=== PATIENT | male | born 1945 | race African-American/Black ===

== ENCOUNTER 2018-02-01 13:30 | Emergency (ER) | payer MEDICARE, MEDICAID ==
[~2018-02-01] VITALS: Ht 177.8 cm; Wt 118.0 kg
[~2018-02-01 13:30] MED LIST: AMA4 PO; AMIT10TA6 PO; ATOR10TA69 PO; CLAR10 PO; COLC0.6T66 PO; DOCU-150 PO; FERR-63 PO; IPRA0.2S51 IH; LOV40 SQ; NEPVIT PO; OMEP20TA2 PO; PROT40 PO; SITA100T11 PO; STARLIX PO; TAMS-11 PO
[2018-02-01] MEDS ORDERED: SODIUM CHLORIDE 0.9% 500 ML IV ONE (14:38)
[2018-02-01] MEDS ORDERED: ONDANSETRON HCL 4MG/2ML VIAL IV STA (14:38)
[2018-02-01] MEDS ORDERED: MORPHINE SULFATE 4 MG/ML CPJ (NOT FOR IM USE) IV STA (14:38)
[2018-02-01 16:29] LABS: HEMATOCRIT. 32.9 % (42.0-52.0); HEMOGLOBIN. 10.4 g/dL (14.0-18.0); MEAN CORPUSCULAR HEMOGLOBIN 27.1 pg (28.0-32.0); MEAN CORPUSCULAR VOLUME 85.6 fL (80.0-94.0); MEAN PLATELET VOLUME 7.8 fl (7.4-10.4); PLATELET 116 x1000/uL (130-400); RED BLOOD CELL COUNT 3.85 mill/uL (4.7-6.1); RED CELL DISTRIBUTION WIDTH 17.8 % (11.6-14.6)
[2018-02-01 16:37] LABS: CHLORIDE 94 mEq/L (98-107)
[2018-02-01 16:38] LABS: INR 1.1; PARTIAL THROMBOPLASTIN TIME 21.7 sec (23.4-31.0)
[2018-02-01 16:49] LABS: PLATELET ESTIMATE DECREASED
[2018-02-01] MEDS ORDERED: MORPHINE SULFATE 4 MG/ML CPJ (NOT FOR IM USE) IV ONE (18:30)
[2018-02-01 21:16] VITALS: BP 115/65
== END 2018-02-01 21:23 | disposition short-term general hospital (02) ==
LOC: ER 14:10
DX: L89.151 Pressure ulcer of sacral region, stage 1 (principal); R63.0 Anorexia; I12.0 Hypertensive chronic kidney disease with stage 5 chronic kidney disease or end stage renal disease; N18.6 End stage renal disease; J44.9 Chronic obstructive pulmonary disease, unspecified; Z99.2 Dependence on renal dialysis; Z79.84 Long term (current) use of oral hypoglycemic drugs; R79.1 Abnormal coagulation profile
CPT/HCPCS: 36415; 71045; 80053; 85025; 85610; 85730; 86850; 86900; 86901; 93005; 96374; 96375; 99285; J2270; J2405; J7030; J7040; Z7610

== ENCOUNTER 2018-02-02 10:54 | Inpatient (IN) | payer MEDICARE, MEDICAID ==
[~2018-02-02] VITALS: Ht 172.7 cm; Wt 90.3 kg
[2018-02-02] VITALS (59 sets, daily range): BP systolic 35–162; BP diastolic 23–133
[2018-02-02] MEDS ORDERED: VANCOMYCIN 1 G PREMIX 200 ML IV ONE (11:30)
[2018-02-02] MEDS ORDERED: SODIUM CHLORIDE 0.9% 1000ML BAG (SEPSIS BOLUS) IV ONE (11:30)
[2018-02-02] MEDS ORDERED: PIPERACILLIN/TAZ 3.375G PREMIX 50 ML IV ONE (11:30)
[2018-02-02 11:55] LABS: HEMATOCRIT. 32.4 % (42.0-52.0); HEMOGLOBIN. 10.3 g/dL (14.0-18.0); MEAN CORPUSCULAR HEMOGLOBIN 27.9 pg (28.0-32.0); MEAN CORPUSCULAR VOLUME 87.5 fL (80.0-94.0); MEAN PLATELET VOLUME 7.5 fl (7.4-10.4); PLATELET 116 x1000/uL (130-400); RED CELL DISTRIBUTION WIDTH 17.6 % (11.6-14.6)
[2018-02-02 12:02] LABS: CHLORIDE 97 mEq/L (98-107)
[2018-02-02 12:03] LABS: INR 1.1; PROTHROMBIN TIME 11.9 sec (9.4-11.6)
[2018-02-02 12:04] LABS: BG BASE EXCESS -6.1 mmol/L (-2.0-2.0); BG CARBOXYHEMOGLOBIN 1.1 % (0.5-1.5); BG DEOXYHEMOGLOBIN 0.4 % (0.0-5.0); BG HCO3 ACT 22.3 mmol/L (22.0-26.0); BG METHEMOGLOBIN 0.3 % (0.0-1.5); BG OXYGEN SATURATION 99.6 % (92.0-98.5); BG OXYHEMOGLOBIN 98.2 % (94.0-97.0); BG PCO2 58.3 mmHg (35.0-45.0); BG PH 7.201 (7.350-7.450); BG PO2 315.2 mmHg (75.0-100.0); BG SAMPLE SITE RIGHT RADIAL; BG TOTAL HEMOGLOBIN 11.2 g/dL (12.0-18.0); BG VENT MODE MASK - NRB
[2018-02-02 12:31] LABS: PLATELET ESTIMATE DECREASED
[2018-02-02] MEDS ORDERED: NOREPINEPHRINE 4 MG in DEXT 5% WATER 246 ML IV ONE ×2 (13:15→13:30)
[2018-02-02] MEDS ORDERED: ONDANSETRON HCL 4MG/2ML VIAL IV PRN (13:30)
[2018-02-02] MEDS ORDERED: ONDANSETRON HCL 4MG/2ML VIAL IV ONE (13:30)
[2018-02-02] MEDS ORDERED: MORPHINE SULFATE 4 MG/ML CPJ (NOT FOR IM USE) IV ONE (13:30)
[2018-02-02 13:50] LABS: BG BASE EXCESS -7.2 mmol/L (-2.0-2.0); BG DEOXYHEMOGLOBIN 6.7 % (0.0-5.0); BG HCO3 ACT 20.7 mmol/L (22.0-26.0); BG METHEMOGLOBIN 0.1 % (0.0-1.5); BG OXYGEN SATURATION 93.2 % (92.0-98.5); BG OXYHEMOGLOBIN 92.2 % (94.0-97.0); BG PCO2 52.5 mmHg (35.0-45.0); BG PH 7.213 (7.350-7.450); BG PO2 79.6 mmHg (75.0-100.0); BG SAMPLE SITE RIGHT BRACHIAL; BG TOTAL HEMOGLOBIN 10.9 g/dL (12.0-18.0); BG VENT MODE NASAL CANNULA
[2018-02-02] MEDS ORDERED: METRONIDAZOLE 500 MG PREMIX 100 ML IV ONE (14:30)
[2018-02-02] MEDS: SODIUM CHLORIDE 0.9% 1,000 ML IV SCH (16:16)
[2018-02-02] MEDS ORDERED: NOREPINEPHRINE 16 MG in DEXT 5% WATER 234 ML IV PRN (17:00)
[2018-02-02] MEDS ORDERED: PHENYLEPHRINE 40 MG in DEXT 5% WATER 246 ML IV PRN (17:15)
[2018-02-02] MEDS: MIDODRINE HCL 5MG TABLET PO SCH (17:30)
[2018-02-02] MEDS ORDERED: SODIUM BICARBONATE 8.4% 1 MEQ/ML 50ML SYR IV NR ×2 (17:59→21:30)
[2018-02-02] MEDS ORDERED: LEVOFLOXACIN 500MG PREMIX 100 ML IV SCH (18:00)
[2018-02-02] MEDS ORDERED: ENOXAPARIN 40MG/0.4ML SYR SUBCUT SCH (18:00)
[2018-02-02] MEDS ORDERED: VANCOMYCIN 1 G PREMIX 200 ML IV SCH (18:00)
[2018-02-02] MEDS ORDERED: SODIUM CHLORIDE 0.9% 250 ML IV NR (18:30)
[2018-02-02 18:35] LABS: CREATINE KINASE MB FRACTION 2.9 ng/mL (0.5-3.6)
[2018-02-02] MEDS ORDERED: DOPAMINE 400MG PREMIX 250 ML IV ONE (18:39)
[2018-02-02] MEDS: FERROUS SULFATE 325MG TABLET PO SCH (18:59)
[2018-02-02] MEDS ORDERED: DOPAMINE 400MG PREMIX 250 ML IV PRN (19:00)
[2018-02-02] MEDS ORDERED: PROPOFOL 10MG/ML 100ML 100 ML IV PRN (19:00)
[2018-02-02] MEDS ORDERED: NOREPINEPHRINE 32 MG in DEXT 5% WATER 468 ML IV PRN (19:00)
[2018-02-02] MEDS ORDERED: PHENYLEPHRINE 80 MG in DEXT 5% WATER 492 ML IV PRN ×2 (19:00→22:00)
[2018-02-02] MEDS ORDERED: ALBUMIN HUMAN 25GM/100ML (25%) IV NR (19:30)
[2018-02-02 21:01] LABS: BG BASE EXCESS -9.9 mmol/L (-2.0-2.0); BG DEOXYHEMOGLOBIN 0.8 % (0.0-5.0); BG FRACTION INSPIRED OXYGEN 100; BG HCO3 ACT 19.6 mmol/L (22.0-26.0); BG METHEMOGLOBIN 0.3 % (0.0-1.5); BG OXYGEN SATURATION 99.2 % (92.0-98.5); BG OXYHEMOGLOBIN 97.9 % (94.0-97.0); BG PCO2 60.4 mmHg (35.0-45.0); BG PH 7.128 (7.350-7.450); BG PO2 197.3 mmHg (75.0-100.0); BG SAMPLE SITE RIGHT RADIAL; BG TIDAL VOLUME(mL) 600 mL; BG TOTAL HEMOGLOBIN 11.4 g/dL (12.0-18.0); BG VENT MODE VENT - A/C; BG VENT RATE 12 set
[2018-02-02] MEDS ORDERED: AMIKACIN SULFATE 650 MG in SODIUM CHLORIDE 0.9% 100 ML IV NR (21:30)
[2018-02-02] MEDS ORDERED: DEXTROSE 50% WATER 50ML SYRINGE IV PRN (21:45)
[2018-02-02] MEDS: LACTULOSE 20G/30ML UDC PO SCH (22:00)
[2018-02-02] MEDS: BLOOD SUGAR DIAGNOSTIC STRIP TEST SCH (22:20)
[2018-02-02] MEDS: INSULIN LISPRO 100 UNITS/ML SUBCUT SCH (22:28)
[2018-02-03] VITALS (108 sets, daily range): BP systolic 53–142; BP diastolic 29–106
[2018-02-03] MEDS: CEFEPIME 2,000 MG in DEXT 5% WATER 100 ML IV SCH ×2 (00:58→20:45)
[2018-02-03] MEDS: SODIUM CHLORIDE 0.9% 1,000 ML IV SCH (02:38)
[2018-02-03 03:17] LABS: BG CARBOXYHEMOGLOBIN 0.7 % (0.5-1.5); BG DEOXYHEMOGLOBIN 2.7 % (0.0-5.0); BG FRACTION INSPIRED OXYGEN 80; BG HCO3 ACT 26.8 mmol/L (22.0-26.0); BG METHEMOGLOBIN 0.1 % (0.0-1.5); BG OXYGEN SATURATION 97.3 % (92.0-98.5); BG OXYHEMOGLOBIN 96.5 % (94.0-97.0); BG PCO2 48.1 mmHg (35.0-45.0); BG PH 7.364 (7.350-7.450); BG PO2 102.4 mmHg (75.0-100.0); BG SAMPLE SITE RIGHT BRACHIAL; BG TIDAL VOLUME(mL) 600 mL; BG TOTAL HEMOGLOBIN 11.1 g/dL (12.0-18.0); BG VENT MODE VENT - A/C; BG VENT RATE 14 set
[2018-02-03 03:18] LABS: CREATINE KINASE MB FRACTION 3.2 ng/mL (0.5-3.6)
[2018-02-03] MEDS: IPRATROPIUM/ALBUTEROL 0.5-3(2.5)MG/3ML NEB HHN SCH ×5 (03:29→21:47)
[2018-02-03] MEDS: ACETAMINOPHEN 325MG TABLET PO PRN ×3 (04:47→14:55)
[2018-02-03 05:18] LABS: HEMATOCRIT. 30.3 % (42.0-52.0); HEMOGLOBIN. 9.7 g/dL (14.0-18.0); MEAN CORPUSCULAR HEMOGLOBIN 27.2 pg (28.0-32.0); MEAN CORPUSCULAR VOLUME 85.2 fL (80.0-94.0); MEAN PLATELET VOLUME 8.3 fl (7.4-10.4); PLATELET 111 x1000/uL (130-400); RED BLOOD CELL COUNT 3.55 mill/uL (4.7-6.1); RED CELL DISTRIBUTION WIDTH 17.8 % (11.6-14.6)
[2018-02-03 05:32] LABS: CHLORIDE 107 mEq/L (98-107)
[2018-02-03] MEDS: LACTULOSE 20G/30ML UDC PO SCH ×3 (06:00→23:28)
[2018-02-03] MEDS: BLOOD SUGAR DIAGNOSTIC STRIP TEST SCH ×4 (06:01→23:29)
[2018-02-03] MEDS: INSULIN LISPRO 100 UNITS/ML SUBCUT SCH ×4 (06:02→23:46)
[2018-02-03] MEDS ORDERED: IPRATROPIUM/ALBUTEROL 0.5-3(2.5)MG/3ML NEB HHN PRN (08:45)
[2018-02-03 08:58] LABS: PLATELET ESTIMATE DECREASED
[2018-02-03 08:59] LABS: BG BASE EXCESS 1.3 mmol/L (-2.0-2.0); BG CARBOXYHEMOGLOBIN 0.7 % (0.5-1.5); BG FRACTION INSPIRED OXYGEN 80; BG HCO3 ACT 26.7 mmol/L (22.0-26.0); BG METHEMOGLOBIN 0.2 % (0.0-1.5); BG OXYHEMOGLOBIN 98.1 % (94.0-97.0); BG PCO2 45.5 mmHg (35.0-45.0); BG PH 7.386 (7.350-7.450); BG PO2 164.6 mmHg (75.0-100.0); BG SAMPLE SITE RIGHT RADIAL; BG TIDAL VOLUME(mL) 600 mL; BG TOTAL HEMOGLOBIN 10.3 g/dL (12.0-18.0); BG VENT MODE VENT - A/C; BG VENT RATE 14 set
[2018-02-03] MEDS ORDERED: LACTULOSE 300 ML in WATER FOR INJECTION,STERILE 700 ML PR SCH (09:00)
[2018-02-03] MEDS: MIDODRINE HCL 5MG TABLET PO SCH ×3 (09:48→17:08)
[2018-02-03] MEDS: FERROUS SULFATE 325MG TABLET PO SCH ×3 (09:48→17:07)
[2018-02-03] MEDS: FOLIC ACID/VITAMIN B COMP W-C TABLET PO SCH (09:49)
[2018-02-03] MEDS: DEXT 5%/0.45% NACL 1000ML 1,000 ML IV SCH ×2 (09:51→21:33)
[2018-02-03] MEDS ORDERED: PANTOPRAZOLE SODIUM 40 MG/VIAL IV SCH (10:00)
[2018-02-03] MEDS: LACTOBACILLUS GG CAPSULE PO SCH (10:04)
[2018-02-03] MEDS: PANTOPRAZOLE SODIUM 40 MG/VIAL IV SCH (10:04)
[2018-02-03] MEDS: PROPOFOL 10MG/ML 100ML 100 ML IV PRN ×4 (11:16→21:58)
[2018-02-03 11:54] LABS: KETONES URINE TRACE (NEGATIVE); LEUKOCYTE ESTERASE URINE 3+ (NEGATIVE); NITRITE URINE NEGATIVE (NEGATIVE); OCCULT BLOOD URINE 3+ (NEGATIVE); PROTEIN URINE 3+ (NEGATIVE); UROBILINOGEN URINE 0.2 E.U./dL (0.2-1.0)
[2018-02-03] MEDS ORDERED: VANCOMYCIN HCL 1000 MG/20 ML ORAL PO SCH (12:00)
[2018-02-03] MEDS ORDERED: VANCOMYCIN HCL 1 GM/VIAL PO SCH (12:00)
[2018-02-03 12:04] LABS: CLARITY URINE CLOUDY (CLEAR); COLOR URINE YELLOW (YELLOW)
[2018-02-03] MEDS ORDERED: VANCOMYCIN 1 G PREMIX 200 ML IV SCH (13:00)
[2018-02-03] MEDS: PHENYLEPHRINE 80 MG in SODIUM CHLORIDE 0.9% 492 ML IV PRN ×2 (13:56→21:32)
[2018-02-03] MEDS ORDERED: LACTULOSE 20G/30ML UDC PO SCH (14:00)
[2018-02-03] MEDS: NOREPINEPHRINE 16 MG in DEXT 5% WATER 234 ML IV PRN (14:14)
[2018-02-03] MEDS: METRONIDAZOLE 500 MG PREMIX 100 ML IV SCH ×2 (14:33→21:57)
[2018-02-03] MEDS ORDERED: ENOXAPARIN 40MG/0.4ML SYR SUBCUT SCH (18:00)
[2018-02-03] MEDS: VANCOMYCIN HCL 1000 MG/20 ML ORAL PO SCH ×2 (19:10→23:29)
[2018-02-04] VITALS (109 sets, daily range): BP systolic 49–156; BP diastolic 30–95
[2018-02-04] MEDS: IPRATROPIUM/ALBUTEROL 0.5-3(2.5)MG/3ML NEB HHN SCH ×7 (00:01→23:55)
[2018-02-04] MEDS: PROPOFOL 10MG/ML 100ML 100 ML IV PRN ×5 (02:23→21:48)
[2018-02-04] MEDS: NOREPINEPHRINE 16 MG in DEXT 5% WATER 234 ML IV PRN ×3 (02:24→21:49)
[2018-02-04] MEDS: METRONIDAZOLE 500 MG PREMIX 100 ML IV SCH ×3 (05:29→21:52)
[2018-02-04] MEDS: LACTULOSE 20G/30ML UDC PO SCH ×4 (05:29→21:52)
[2018-02-04] MEDS: INSULIN LISPRO 100 UNITS/ML SUBCUT SCH ×3 (05:31→17:30)
[2018-02-04] MEDS: BLOOD SUGAR DIAGNOSTIC STRIP TEST SCH ×3 (05:31→17:21)
[2018-02-04] MEDS: VANCOMYCIN HCL 1000 MG/20 ML ORAL PO SCH ×3 (05:33→17:28)
[2018-02-04] MEDS: PHENYLEPHRINE 80 MG in SODIUM CHLORIDE 0.9% 492 ML IV PRN ×3 (06:31→21:49)
[2018-02-04 06:32] LABS: HEMATOCRIT. 35.7 % (42.0-52.0); HEMOGLOBIN. 11.1 g/dL (14.0-18.0); MEAN CORPUSCULAR HEMOGLOBIN 26.6 pg (28.0-32.0); MEAN CORPUSCULAR VOLUME 85.6 fL (80.0-94.0); MEAN PLATELET VOLUME 8.6 fl (7.4-10.4); PLATELET 97 x1000/uL (130-400); RED BLOOD CELL COUNT 4.17 mill/uL (4.7-6.1); RED CELL DISTRIBUTION WIDTH 18.1 % (11.6-14.6)
[2018-02-04] MEDS: LACTOBACILLUS GG CAPSULE PO SCH (08:18)
[2018-02-04] MEDS: PANTOPRAZOLE SODIUM 40 MG/VIAL IV SCH (08:18)
[2018-02-04] MEDS: FERROUS SULFATE 325MG TABLET PO SCH ×3 (08:19→17:28)
[2018-02-04] MEDS: ACETAMINOPHEN 325MG TABLET PO PRN (08:19)
[2018-02-04] MEDS: MIDODRINE HCL 5MG TABLET PO SCH ×3 (08:19→17:27)
[2018-02-04] MEDS: FOLIC ACID/VITAMIN B COMP W-C TABLET PO SCH (08:19)
[2018-02-04 09:24] LABS: PLATELET ESTIMATE DECREASED
[2018-02-04 09:56] LABS: BG BASE EXCESS -4.2 mmol/L (-2.0-2.0); BG CARBOXYHEMOGLOBIN 0.9 % (0.5-1.5); BG DEOXYHEMOGLOBIN 8.6 % (0.0-5.0); BG FRACTION INSPIRED OXYGEN 40; BG HCO3 ACT 20.7 mmol/L (22.0-26.0); BG METHEMOGLOBIN 0.1 % (0.0-1.5); BG OXYGEN SATURATION 91.3 % (92.0-98.5); BG OXYHEMOGLOBIN 90.4 % (94.0-97.0); BG PCO2 37.5 mmHg (35.0-45.0); BG PO2 68.8 mmHg (75.0-100.0); BG SAMPLE SITE RIGHT BRACHIAL; BG TIDAL VOLUME(mL) 600 mL; BG TOTAL HEMOGLOBIN 11.5 g/dL (12.0-18.0); BG VENT MODE VENT - A/C; BG VENT RATE 14 set
[2018-02-04] MEDS ORDERED: LEVOFLOXACIN 250MG PREMIX 50 ML IV SCH (18:00)
[2018-02-04] MEDS ORDERED: ENOXAPARIN 30MG/0.3ML SYR SUBCUT SCH (18:00)
[2018-02-04] MEDS: DEXT 5%/0.45% NACL 1000ML 1,000 ML IV SCH ×2 (18:18→21:49)
[2018-02-04] MEDS ORDERED: VANCOMYCIN 1 G PREMIX 200 ML IV SCH (21:00)
[2018-02-04] MEDS: CEFEPIME 2,000 MG in DEXT 5% WATER 100 ML IV SCH (21:52)
[2018-02-05] VITALS (97 sets, daily range): BP systolic 69–154; BP diastolic 30–98
[2018-02-05] MEDS: VANCOMYCIN HCL 1000 MG/20 ML ORAL PO SCH ×4 (00:27→17:37)
[2018-02-05] MEDS: INSULIN LISPRO 100 UNITS/ML SUBCUT SCH ×4 (00:28→17:36)
[2018-02-05] MEDS: BLOOD SUGAR DIAGNOSTIC STRIP TEST SCH ×4 (00:48→17:18)
[2018-02-05] MEDS: PROPOFOL 10MG/ML 100ML 100 ML IV PRN ×2 (01:45→05:43)
[2018-02-05] MEDS: IPRATROPIUM/ALBUTEROL 0.5-3(2.5)MG/3ML NEB HHN SCH ×4 (03:52→20:58)
[2018-02-05 05:22] LABS: HEMATOCRIT. 35.8 % (42.0-52.0); HEMOGLOBIN. 11.3 g/dL (14.0-18.0); MEAN CORPUSCULAR HEMOGLOBIN 26.7 pg (28.0-32.0); MEAN CORPUSCULAR VOLUME 84.2 fL (80.0-94.0); MEAN PLATELET VOLUME 8.7 fl (7.4-10.4); PLATELET 90 x1000/uL (130-400); RED BLOOD CELL COUNT 4.25 mill/uL (4.7-6.1); RED CELL DISTRIBUTION WIDTH 18.4 % (11.6-14.6)
[2018-02-05] MEDS: LACTULOSE 20G/30ML UDC PO SCH (05:34)
[2018-02-05] MEDS: PHENYLEPHRINE 80 MG in SODIUM CHLORIDE 0.9% 492 ML IV PRN ×3 (05:35→21:52)
[2018-02-05] MEDS: METRONIDAZOLE 500 MG PREMIX 100 ML IV SCH ×3 (05:35→21:46)
[2018-02-05] MEDS: NOREPINEPHRINE 16 MG in DEXT 5% WATER 234 ML IV PRN ×2 (05:36→17:42)
[2018-02-05 05:42] LABS: CHLORIDE 103 mEq/L (98-107)
[2018-02-05 07:50] LABS: PLATELET ESTIMATE SLIGHTLY DECREASED
[2018-02-05 07:54] LABS: BG BASE EXCESS -4.7 mmol/L (-2.0-2.0); BG DEOXYHEMOGLOBIN 7.7 % (0.0-5.0); BG HCO3 ACT 20.9 mmol/L (22.0-26.0); BG METHEMOGLOBIN 0.1 % (0.0-1.5); BG OXYGEN SATURATION 92.2 % (92.0-98.5); BG OXYHEMOGLOBIN 91.2 % (94.0-97.0); BG PH 7.326 (7.350-7.450); BG PO2 72.8 mmHg (75.0-100.0); BG SAMPLE SITE RIGHT RADIAL; BG TIDAL VOLUME(mL) 600 mL; BG TOTAL HEMOGLOBIN 12.2 g/dL (12.0-18.0); BG VENT MODE VENT - A/C; BG VENT RATE 14 set
[2018-02-05] MEDS ORDERED: PROPOFOL 10MG/ML 100ML 100 ML IV PRN (08:15)
[2018-02-05] MEDS: FOLIC ACID/VITAMIN B COMP W-C TABLET PO SCH (10:07)
[2018-02-05] MEDS: LACTOBACILLUS GG CAPSULE PO SCH (10:07)
[2018-02-05] MEDS: MIDODRINE HCL 5MG TABLET PO SCH (10:07)
[2018-02-05] MEDS: ACETAMINOPHEN 325MG TABLET PO PRN (10:07)
[2018-02-05] MEDS: FERROUS SULFATE 325MG TABLET PO SCH (10:07)
[2018-02-05] MEDS: PANTOPRAZOLE SODIUM 40 MG/VIAL IV SCH (10:08)
[2018-02-05 11:05] LABS: BG BASE EXCESS -5.2 mmol/L (-2.0-2.0); BG CARBOXYHEMOGLOBIN 0.9 % (0.5-1.5); BG DEOXYHEMOGLOBIN 3.9 % (0.0-5.0); BG FRACTION INSPIRED OXYGEN 65; BG HCO3 ACT 19.5 mmol/L (22.0-26.0); BG OXYGEN SATURATION 96.1 % (92.0-98.5); BG OXYHEMOGLOBIN 95.2 % (94.0-97.0); BG PCO2 34.9 mmHg (35.0-45.0); BG PH 7.364 (7.350-7.450); BG PO2 89.9 mmHg (75.0-100.0); BG SAMPLE SITE RIGHT RADIAL; BG TIDAL VOLUME(mL) 600 mL; BG TOTAL HEMOGLOBIN 12.2 g/dL (12.0-18.0); BG VENT MODE VENT - A/C; BG VENT RATE 18 set
[2018-02-05] MEDS ORDERED: FUROSEMIDE 40MG/4ML VIAL IVP NR (11:30)
[2018-02-05] MEDS ORDERED: MAGNESIUM 2 G PREMIX 50 ML IV SCH (14:00)
[2018-02-05] MEDS: DEXT 5%/0.45% NACL 1000ML 1,000 ML IV SCH (15:40)
[2018-02-05] MEDS: LACTULOSE 300 ML in WATER FOR INJECTION,STERILE 700 ML PR SCH (17:37)
[2018-02-05] MEDS ORDERED: ENOXAPARIN 30MG/0.3ML SYR SUBCUT SCH (18:00)
[2018-02-05] MEDS: CEFEPIME 2,000 MG in DEXT 5% WATER 100 ML IV SCH (21:47)
[2018-02-06] VITALS (92 sets, daily range): BP systolic 60–129; BP diastolic 16–101
[2018-02-06] MEDS: INSULIN LISPRO 100 UNITS/ML SUBCUT SCH ×5 (00:04→23:17)
[2018-02-06] MEDS: VANCOMYCIN HCL 1000 MG/20 ML ORAL PO SCH ×5 (00:04→23:09)
[2018-02-06] MEDS: BLOOD SUGAR DIAGNOSTIC STRIP TEST SCH ×5 (00:04→23:14)
[2018-02-06] MEDS: IPRATROPIUM/ALBUTEROL 0.5-3(2.5)MG/3ML NEB HHN SCH ×7 (00:33→23:46)
[2018-02-06] MEDS: DEXT 5%/0.45% NACL 1000ML 1,000 ML IV SCH ×2 (03:10→17:47)
[2018-02-06 05:38] LABS: HEMATOCRIT. 34.9 % (42.0-52.0); HEMOGLOBIN. 10.9 g/dL (14.0-18.0); MEAN CORPUSCULAR HEMOGLOBIN 26.5 pg (28.0-32.0); MEAN CORPUSCULAR VOLUME 84.9 fL (80.0-94.0); MEAN PLATELET VOLUME 8.7 fl (7.4-10.4); PLATELET 77 x1000/uL (130-400); RED BLOOD CELL COUNT 4.11 mill/uL (4.7-6.1); RED CELL DISTRIBUTION WIDTH 17.8 % (11.6-14.6)
[2018-02-06 05:49] LABS: CHLORIDE 101 mEq/L (98-107)
[2018-02-06] MEDS: METRONIDAZOLE 500 MG PREMIX 100 ML IV SCH ×3 (06:14→22:24)
[2018-02-06] MEDS: LACTULOSE 300 ML in WATER FOR INJECTION,STERILE 700 ML PR SCH ×2 (06:15→17:27)
[2018-02-06] MEDS: PHENYLEPHRINE 80 MG in SODIUM CHLORIDE 0.9% 492 ML IV PRN ×3 (06:16→20:36)
[2018-02-06] MEDS: NOREPINEPHRINE 16 MG in DEXT 5% WATER 234 ML IV PRN ×3 (06:16→23:10)
[2018-02-06 09:14] LABS: BG BASE EXCESS -6.1 mmol/L (-2.0-2.0); BG FRACTION INSPIRED OXYGEN 65; BG HCO3 ACT 18.3 mmol/L (22.0-26.0); BG METHEMOGLOBIN 0.1 % (0.0-1.5); BG OXYHEMOGLOBIN 95.9 % (94.0-97.0); BG PCO2 32.7 mmHg (35.0-45.0); BG PH 7.365 (7.350-7.450); BG PO2 95.3 mmHg (75.0-100.0); BG SAMPLE SITE RIGHT RADIAL; BG TIDAL VOLUME(mL) 600 mL; BG TOTAL HEMOGLOBIN 12.2 g/dL (12.0-18.0); BG VENT MODE VENT - A/C; BG VENT RATE 18 set
[2018-02-06] MEDS: LACTOBACILLUS GG CAPSULE PO SCH (09:39)
[2018-02-06] MEDS: PANTOPRAZOLE SODIUM 40 MG/VIAL IV SCH (09:39)
[2018-02-06 10:02] LABS: NUCLEATED RED BLOOD CELLS 1 /100 WBC; PLATELET ESTIMATE DECREASED
[2018-02-06] MEDS: CEFTRIAXONE 2 G in DEXTROSE 5% WATER 50 ML IV SCH (14:43)
[2018-02-07] VITALS (105 sets, daily range): BP systolic 77–137; BP diastolic 45–78
[2018-02-07] MEDS: DEXT 5%/0.45% NACL 1000ML 1,000 ML IV SCH ×2 (04:01→19:45)
[2018-02-07] MEDS: PHENYLEPHRINE 80 MG in SODIUM CHLORIDE 0.9% 492 ML IV PRN ×3 (04:02→19:47)
[2018-02-07] MEDS: IPRATROPIUM/ALBUTEROL 0.5-3(2.5)MG/3ML NEB HHN SCH ×5 (04:11→21:13)
[2018-02-07] MEDS: VANCOMYCIN HCL 1000 MG/20 ML ORAL PO SCH ×4 (05:45→23:55)
[2018-02-07] MEDS: METRONIDAZOLE 500 MG PREMIX 100 ML IV SCH ×3 (05:45→22:00)
[2018-02-07] MEDS: LACTULOSE 300 ML in WATER FOR INJECTION,STERILE 700 ML PR SCH ×2 (05:45→18:00)
[2018-02-07] MEDS: BLOOD SUGAR DIAGNOSTIC STRIP TEST SCH ×3 (05:52→18:40)
[2018-02-07] MEDS: INSULIN LISPRO 100 UNITS/ML SUBCUT SCH ×3 (05:57→18:41)
[2018-02-07 06:29] LABS: HEMATOCRIT. 32.1 % (42.0-52.0); HEMOGLOBIN. 10.3 g/dL (14.0-18.0); MEAN CORPUSCULAR VOLUME 84.7 fL (80.0-94.0); MEAN PLATELET VOLUME 8.4 fl (7.4-10.4); PLATELET 82 x1000/uL (130-400); RED BLOOD CELL COUNT 3.79 mill/uL (4.7-6.1); RED CELL DISTRIBUTION WIDTH 17.6 % (11.6-14.6)
[2018-02-07 07:39] LABS: BG BASE EXCESS -7.4 mmol/L (-2.0-2.0); BG CARBOXYHEMOGLOBIN 0.6 % (0.5-1.5); BG DEOXYHEMOGLOBIN 6.6 % (0.0-5.0); BG FRACTION INSPIRED OXYGEN 45; BG HCO3 ACT 17.6 mmol/L (22.0-26.0); BG METHEMOGLOBIN 0.3 % (0.0-1.5); BG OXYGEN SATURATION 93.3 % (92.0-98.5); BG OXYHEMOGLOBIN 92.5 % (94.0-97.0); BG PCO2 33.7 mmHg (35.0-45.0); BG PH 7.335 (7.350-7.450); BG PO2 71.6 mmHg (75.0-100.0); BG SAMPLE SITE RIGHT RADIAL; BG TIDAL VOLUME(mL) 600 mL; BG VENT MODE VENT - A/C; BG VENT RATE 18 set
[2018-02-07] MEDS: NOREPINEPHRINE 16 MG in DEXT 5% WATER 234 ML IV PRN (09:41)
[2018-02-07] MEDS ORDERED: SODIUM BICARBONATE 4% (2.4MEQ) 5ML VIAL IV ONE (10:51)
[2018-02-07] MEDS ORDERED: LIDOCAINE HCL 1% 20ML VIAL (Pyxis) INJ ONE (10:52)
[2018-02-07] MEDS ORDERED: ETOMIDATE 2MG/ML 10ML VIAL IV ONE (11:38)
[2018-02-07] MEDS ORDERED: VECURONIUM BROMIDE 10 MG/VIAL IV ONE (11:38)
[2018-02-07] MEDS: LACTOBACILLUS GG CAPSULE PO SCH (12:10)
[2018-02-07] MEDS: PANTOPRAZOLE SODIUM 40 MG/VIAL IV SCH (12:26)
[2018-02-07 13:49] LABS: AMMONIA 16 uMol/L (<32)
[2018-02-07 14:24] LABS: NUCLEATED RED BLOOD CELLS 1 /100 WBC; PLATELET ESTIMATE DECREASED
[2018-02-07] MEDS: CEFTRIAXONE 2 G in DEXTROSE 5% WATER 50 ML IV SCH (17:22)
[2018-02-07] MEDS ORDERED: ALBUMIN HUMAN 25GM/100ML (25%) IV NR (17:30)
[2018-02-08] VITALS (95 sets, daily range): BP systolic 56–150; BP diastolic 15–85
[2018-02-08] MEDS: INSULIN LISPRO 100 UNITS/ML SUBCUT SCH ×4 (00:15→18:00)
[2018-02-08] MEDS: BLOOD SUGAR DIAGNOSTIC STRIP TEST SCH ×4 (00:18→18:13)
[2018-02-08] MEDS: IPRATROPIUM/ALBUTEROL 0.5-3(2.5)MG/3ML NEB HHN SCH ×7 (00:24→23:59)
[2018-02-08] MEDS: ACETAMINOPHEN 325MG TABLET PO PRN ×2 (00:45→05:58)
[2018-02-08] MEDS: NOREPINEPHRINE 16 MG in DEXT 5% WATER 234 ML IV PRN (00:46)
[2018-02-08] MEDS: LACTULOSE 20G/30ML UDC PO SCH ×3 (05:57→18:00)
[2018-02-08] MEDS: METRONIDAZOLE 500 MG PREMIX 100 ML IV SCH ×3 (05:58→20:57)
[2018-02-08] MEDS: VANCOMYCIN HCL 1000 MG/20 ML ORAL PO SCH ×3 (06:22→18:42)
[2018-02-08 06:52] LABS: HEMATOCRIT. 28.6 % (42.0-52.0); HEMOGLOBIN. 9.3 g/dL (14.0-18.0); MEAN CORPUSCULAR HEMOGLOBIN 27.3 pg (28.0-32.0); MEAN CORPUSCULAR VOLUME 84.3 fL (80.0-94.0); MEAN PLATELET VOLUME 8.6 fl (7.4-10.4); PLATELET 64 x1000/uL (130-400); RED BLOOD CELL COUNT 3.39 mill/uL (4.7-6.1); RED CELL DISTRIBUTION WIDTH 17.5 % (11.6-14.6)
[2018-02-08 07:07] LABS: CHLORIDE 105 mEq/L (98-107)
[2018-02-08 08:10] LABS: PLATELET ESTIMATE DECREASED
[2018-02-08] MEDS: PANTOPRAZOLE SODIUM 40 MG/VIAL IV SCH (09:17)
[2018-02-08] MEDS: LACTOBACILLUS GG CAPSULE PO SCH (09:17)
[2018-02-08 09:22] LABS: BG BASE EXCESS -3.5 mmol/L (-2.0-2.0); BG CARBOXYHEMOGLOBIN 0.6 % (0.5-1.5); BG DEOXYHEMOGLOBIN 8.5 % (0.0-5.0); BG FRACTION INSPIRED OXYGEN 50; BG HCO3 ACT 21.2 mmol/L (22.0-26.0); BG METHEMOGLOBIN 0.3 % (0.0-1.5); BG OXYGEN SATURATION 91.4 % (92.0-98.5); BG OXYHEMOGLOBIN 90.6 % (94.0-97.0); BG PCO2 36.8 mmHg (35.0-45.0); BG PH 7.379 (7.350-7.450); BG PO2 66.8 mmHg (75.0-100.0); BG SAMPLE SITE RIGHT BRACHIAL; BG TIDAL VOLUME(mL) 600 mL; BG VENT MODE VENT - A/C; BG VENT RATE 18 set
[2018-02-08] MEDS ORDERED: POTASSIUM CHLORIDE INJ 40 MEQ in DEXT 5% WATER 500 ML IV ONE (09:45)
[2018-02-08] MEDS ORDERED: KCL 20MEQ/100ML PREMIX 100 ML IV NR ×2 (11:00→13:00)
[2018-02-08] MEDS: DEXT 5%/0.45% NACL 1000ML 1,000 ML IV SCH (12:42)
[2018-02-08] MEDS: PHENYLEPHRINE 80 MG in SODIUM CHLORIDE 0.9% 492 ML IV PRN (12:42)
[2018-02-08] MEDS ORDERED: VANCOMYCIN 1 G PREMIX 200 ML IV NR (13:00)
[2018-02-08] MEDS: CEFTRIAXONE 2 G in DEXTROSE 5% WATER 50 ML IV SCH (15:06)
[2018-02-08] MEDS ORDERED: VANCOMYCIN 500 MG PREMIX 100 ML IV SCH (16:00)
[2018-02-09] VITALS (79 sets, daily range): BP systolic 80–156; BP diastolic 24–111
[2018-02-09] MEDS: LACTULOSE 20G/30ML UDC PO SCH ×4 (00:50→18:07)
[2018-02-09] MEDS: BLOOD SUGAR DIAGNOSTIC STRIP TEST SCH ×4 (00:51→18:00)
[2018-02-09] MEDS: INSULIN LISPRO 100 UNITS/ML SUBCUT SCH ×4 (00:51→18:11)
[2018-02-09] MEDS: VANCOMYCIN HCL 1000 MG/20 ML ORAL PO SCH ×4 (01:07→18:07)
[2018-02-09] MEDS: PHENYLEPHRINE 80 MG in SODIUM CHLORIDE 0.9% 492 ML IV PRN ×2 (03:42→18:14)
[2018-02-09] MEDS: IPRATROPIUM/ALBUTEROL 0.5-3(2.5)MG/3ML NEB HHN SCH ×5 (04:10→21:25)
[2018-02-09] MEDS: METRONIDAZOLE 500 MG PREMIX 100 ML IV SCH ×3 (06:54→22:14)
[2018-02-09 06:58] LABS: HEMATOCRIT. 32.1 % (42.0-52.0); MEAN CORPUSCULAR HEMOGLOBIN 26.7 pg (28.0-32.0); MEAN CORPUSCULAR VOLUME 85.6 fL (80.0-94.0); MEAN PLATELET VOLUME 9.5 fl (7.4-10.4); PLATELET 82 x1000/uL (130-400); RED BLOOD CELL COUNT 3.75 mill/uL (4.7-6.1); RED CELL DISTRIBUTION WIDTH 17.1 % (11.6-14.6)
[2018-02-09] MEDS: PANTOPRAZOLE SODIUM 40 MG/VIAL IV SCH (08:13)
[2018-02-09] MEDS: DEXT 5%/0.45% NACL 1000ML 1,000 ML IV SCH ×2 (08:14→11:10)
[2018-02-09] MEDS: LACTOBACILLUS GG CAPSULE PO SCH (08:14)
[2018-02-09 09:19] LABS: BG BASE EXCESS -8.1 mmol/L (-2.0-2.0); BG CARBOXYHEMOGLOBIN 0.1 % (0.5-1.5); BG DEOXYHEMOGLOBIN 1.5 % (0.0-5.0); BG FRACTION INSPIRED OXYGEN 55; BG HCO3 ACT 16.8 mmol/L (22.0-26.0); BG METHEMOGLOBIN 0.1 % (0.0-1.5); BG OXYGEN SATURATION 98.5 % (92.0-98.5); BG OXYHEMOGLOBIN 98.3 % (94.0-97.0); BG PCO2 33.3 mmHg (35.0-45.0); BG PEEP (cmH2O) 0 cmH2O; BG PH 7.321 (7.350-7.450); BG PO2 154.5 mmHg (75.0-100.0); BG SAMPLE SITE RIGHT BRACHIAL; BG TIDAL VOLUME(mL) 600 mL; BG VENT MODE VENT - A/C
[2018-02-09 09:39] LABS: PLATELET ESTIMATE DECREASED
[2018-02-09] MEDS: GENTAMICIN 0.3% OPHTH DROPS 5ML LEFTEYE SCH ×3 (12:46→20:32)
[2018-02-09] MEDS: CEFTRIAXONE 2 G in DEXTROSE 5% WATER 50 ML IV SCH (14:12)
[2018-02-09] MEDS: NOREPINEPHRINE 16 MG in DEXT 5% WATER 234 ML IV PRN ×2 (18:12→22:46)
[2018-02-09] MEDS ORDERED: CEFTRIAXONE 2 G in DEXTROSE 5% WATER 50 ML IV SCH (23:00)
[2018-02-10] VITALS (71 sets, daily range): BP systolic 75–162; BP diastolic 26–96
[2018-02-10] MEDS: CEFTRIAXONE 2 G in DEXTROSE 5% WATER 50 ML IV SCH ×2 (00:13→22:48)
[2018-02-10] MEDS: LACTULOSE 20G/30ML UDC PO SCH ×4 (00:13→18:08)
[2018-02-10] MEDS: BLOOD SUGAR DIAGNOSTIC STRIP TEST SCH ×4 (00:14→17:35)
[2018-02-10] MEDS: DEXT 5%/0.45% NACL 1000ML 1,000 ML IV SCH ×2 (00:14→14:02)
[2018-02-10] MEDS: GENTAMICIN 0.3% OPHTH DROPS 5ML LEFTEYE SCH ×6 (00:14→20:24)
[2018-02-10] MEDS: VANCOMYCIN HCL 1000 MG/20 ML ORAL PO SCH ×4 (00:14→18:11)
[2018-02-10] MEDS: INSULIN LISPRO 100 UNITS/ML SUBCUT SCH ×4 (00:15→18:11)
[2018-02-10] MEDS: MICAFUNGIN 100 MG in SODIUM CHLORIDE 0.9% 100 ML IV SCH ×2 (01:34→21:45)
[2018-02-10] MEDS: IPRATROPIUM/ALBUTEROL 0.5-3(2.5)MG/3ML NEB HHN SCH ×6 (01:37→20:32)
[2018-02-10] MEDS: PHENYLEPHRINE 80 MG in SODIUM CHLORIDE 0.9% 492 ML IV PRN ×2 (04:08→14:44)
[2018-02-10] MEDS: METRONIDAZOLE 500 MG PREMIX 100 ML IV SCH ×2 (05:21→14:01)
[2018-02-10] MEDS: ACETAMINOPHEN 325MG TABLET PO PRN (06:03)
[2018-02-10 06:31] LABS: HEMATOCRIT. 32.4 % (42.0-52.0); MEAN CORPUSCULAR HEMOGLOBIN 26.5 pg (28.0-32.0); MEAN CORPUSCULAR VOLUME 85.8 fL (80.0-94.0); MEAN PLATELET VOLUME 9.4 fl (7.4-10.4); RED BLOOD CELL COUNT 3.78 mill/uL (4.7-6.1); RED CELL DISTRIBUTION WIDTH 17.7 % (11.6-14.6)
[2018-02-10 07:39] LABS: BG BASE EXCESS -4.3 mmol/L (-2.0-2.0); BG CARBOXYHEMOGLOBIN 0.3 % (0.5-1.5); BG DEOXYHEMOGLOBIN 3.1 % (0.0-5.0); BG HCO3 ACT 20.5 mmol/L (22.0-26.0); BG METHEMOGLOBIN 0.3 % (0.0-1.5); BG OXYGEN SATURATION 96.9 % (92.0-98.5); BG OXYHEMOGLOBIN 96.3 % (94.0-97.0); BG PCO2 36.4 mmHg (35.0-45.0); BG PH 7.368 (7.350-7.450); BG PO2 98.4 mmHg (75.0-100.0); BG SAMPLE SITE RIGHT RADIAL; BG TIDAL VOLUME(mL) 600 mL; BG TOTAL HEMOGLOBIN 11.1 g/dL (12.0-18.0); BG VENT MODE VENT - A/C; BG VENT RATE 18 set
[2018-02-10] MEDS: PANTOPRAZOLE SODIUM 40 MG/VIAL IV SCH (08:09)
[2018-02-10] MEDS: LACTOBACILLUS GG CAPSULE PO SCH (08:09)
[2018-02-10] MEDS: NOREPINEPHRINE 16 MG in DEXT 5% WATER 234 ML IV PRN ×2 (08:46→18:46)
[2018-02-10] MEDS ORDERED: POTASSIUM CHLORIDE INJ 40 MEQ in DEXT 5% WATER 250 ML IV ONE (09:15)
[2018-02-10] MEDS ORDERED: POTASSIUM CHLORIDE 20MEQ/PACKET NG NR (09:21)
[2018-02-10 09:28] LABS: PLATELET ESTIMATE SLIGHTLY DECREASED
[2018-02-10 09:30] LABS: PLATELET 114 x1000/uL (130-400)
[2018-02-10] MEDS: KCL 20MEQ/100ML PREMIX 100 ML IV SCH ×3 (12:30→18:08)
[2018-02-11] VITALS (99 sets, daily range): BP systolic 52–185; BP diastolic 24–127
[2018-02-11] MEDS: VANCOMYCIN HCL 1000 MG/20 ML ORAL PO SCH ×4 (00:05→18:38)
[2018-02-11] MEDS: GENTAMICIN 0.3% OPHTH DROPS 5ML LEFTEYE SCH ×6 (00:05→20:39)
[2018-02-11] MEDS: BLOOD SUGAR DIAGNOSTIC STRIP TEST SCH ×4 (00:06→18:31)
[2018-02-11] MEDS: INSULIN LISPRO 100 UNITS/ML SUBCUT SCH ×4 (00:06→18:39)
[2018-02-11] MEDS: IPRATROPIUM/ALBUTEROL 0.5-3(2.5)MG/3ML NEB HHN SCH ×6 (00:43→20:30)
[2018-02-11] MEDS: PHENYLEPHRINE 80 MG in SODIUM CHLORIDE 0.9% 492 ML IV PRN ×2 (01:27→14:46)
[2018-02-11] MEDS: DEXT 5%/0.45% NACL 1000ML 1,000 ML IV SCH ×2 (03:32→16:38)
[2018-02-11] MEDS: LACTULOSE 20G/30ML UDC PO SCH ×4 (05:30→18:38)
[2018-02-11 08:48] LABS: BG CARBOXYHEMOGLOBIN 0.3 % (0.5-1.5); BG FRACTION INSPIRED OXYGEN 50; BG HCO3 ACT 20.5 mmol/L (22.0-26.0); BG OXYHEMOGLOBIN 97.7 % (94.0-97.0); BG PCO2 35.3 mmHg (35.0-45.0); BG PH 7.381 (7.350-7.450); BG PO2 116.5 mmHg (75.0-100.0); BG SAMPLE SITE RIGHT RADIAL; BG TIDAL VOLUME(mL) 600 mL; BG TOTAL HEMOGLOBIN 11.7 g/dL (12.0-18.0); BG VENT MODE VENT - A/C; BG VENT RATE 16 set
[2018-02-11 09:00] LABS: HEMATOCRIT. 34.7 % (42.0-52.0); HEMOGLOBIN. 10.7 g/dL (14.0-18.0); MEAN CORPUSCULAR HEMOGLOBIN 26.7 pg (28.0-32.0); MEAN CORPUSCULAR VOLUME 86.9 fL (80.0-94.0); MEAN PLATELET VOLUME 8.9 fl (7.4-10.4); PLATELET 100 x1000/uL (130-400); RED CELL DISTRIBUTION WIDTH 17.4 % (11.6-14.6)
[2018-02-11 09:22] LABS: CHLORIDE 106 mEq/L (98-107)
[2018-02-11] MEDS: LACTOBACILLUS GG CAPSULE PO SCH (09:35)
[2018-02-11] MEDS: PANTOPRAZOLE SODIUM 40 MG/VIAL IV SCH (09:35)
[2018-02-11] MEDS ORDERED: KCL 20MEQ/100ML PREMIX 100 ML IV NR (10:00)
[2018-02-11 10:09] LABS: NUCLEATED RED BLOOD CELLS 1 /100 WBC
[2018-02-11 10:10] LABS: PLATELET ESTIMATE DECREASED
[2018-02-11] MEDS ORDERED: VANCOMYCIN 1250MG in DEXTROSE 5% WATER 250ML IV NR (14:00)
[2018-02-11] MEDS: SPIRONOLACTONE 25MG TABLET PO SCH (18:38)
[2018-02-11] MEDS: MICAFUNGIN 100 MG in SODIUM CHLORIDE 0.9% 100 ML IV SCH (21:59)
[2018-02-11] MEDS: CEFTRIAXONE 2 G in DEXTROSE 5% WATER 50 ML IV SCH (22:02)
[2018-02-12] VITALS (100 sets, daily range): BP systolic 57–222; BP diastolic 20–193
[2018-02-12] MEDS: INSULIN LISPRO 100 UNITS/ML SUBCUT SCH ×4 (00:25→18:27)
[2018-02-12] MEDS: GENTAMICIN 0.3% OPHTH DROPS 5ML LEFTEYE SCH ×6 (00:26→21:18)
[2018-02-12] MEDS: VANCOMYCIN HCL 1000 MG/20 ML ORAL PO SCH ×4 (00:26→18:29)
[2018-02-12] MEDS: LACTULOSE 20G/30ML UDC PO SCH ×5 (00:26→18:26)
[2018-02-12] MEDS: PHENYLEPHRINE 80 MG in SODIUM CHLORIDE 0.9% 492 ML IV PRN ×3 (03:13→22:45)
[2018-02-12] MEDS: IPRATROPIUM/ALBUTEROL 0.5-3(2.5)MG/3ML NEB HHN SCH ×6 (03:30→20:59)
[2018-02-12] MEDS: DEXT 5%/0.45% NACL 1000ML 1,000 ML IV SCH ×2 (03:31→21:20)
[2018-02-12] MEDS: BLOOD SUGAR DIAGNOSTIC STRIP TEST SCH ×4 (06:09→18:20)
[2018-02-12 06:45] LABS: HEMATOCRIT. 33.2 % (42.0-52.0); HEMOGLOBIN. 9.9 g/dL (14.0-18.0); MEAN CORPUSCULAR HEMOGLOBIN 26.8 pg (28.0-32.0); MEAN CORPUSCULAR VOLUME 89.8 fL (80.0-94.0); MEAN PLATELET VOLUME 9.3 fl (7.4-10.4); PLATELET 104 x1000/uL (130-400); RED CELL DISTRIBUTION WIDTH 17.6 % (11.6-14.6)
[2018-02-12] MEDS: SPIRONOLACTONE 25MG TABLET PO SCH ×3 (09:38→18:26)
[2018-02-12] MEDS: LACTOBACILLUS GG CAPSULE PO SCH (09:38)
[2018-02-12] MEDS: PANTOPRAZOLE SODIUM 40 MG/VIAL IV SCH (09:38)
[2018-02-12 09:54] LABS: BG BASE EXCESS -5.8 mmol/L (-2.0-2.0); BG CARBOXYHEMOGLOBIN 0.4 % (0.5-1.5); BG DEOXYHEMOGLOBIN 4.2 % (0.0-5.0); BG FRACTION INSPIRED OXYGEN 40; BG HCO3 ACT 19.3 mmol/L (22.0-26.0); BG METHEMOGLOBIN 0.1 % (0.0-1.5); BG OXYGEN SATURATION 95.8 % (92.0-98.5); BG OXYHEMOGLOBIN 95.3 % (94.0-97.0); BG PCO2 36.3 mmHg (35.0-45.0); BG PH 7.343 (7.350-7.450); BG PO2 88.8 mmHg (75.0-100.0); BG SAMPLE SITE RIGHT RADIAL; BG TIDAL VOLUME(mL) 600 mL; BG TOTAL HEMOGLOBIN 10.9 g/dL (12.0-18.0); BG VENT MODE VENT - A/C; BG VENT RATE 16 set
[2018-02-12] MEDS: NOREPINEPHRINE 16 MG in DEXT 5% WATER 234 ML IV PRN ×2 (10:00→22:45)
[2018-02-12 13:29] LABS: NUCLEATED RED BLOOD CELLS 1 /100 WBC
[2018-02-12 13:31] LABS: PLATELET ESTIMATE DECREASED
[2018-02-12] MEDS ORDERED: KCL 20MEQ/100ML PREMIX 100 ML IV NR (15:00)
[2018-02-12] MEDS: MICAFUNGIN 100 MG in SODIUM CHLORIDE 0.9% 100 ML IV SCH (21:20)
[2018-02-12] MEDS: MORPHINE SULFATE 4 MG/ML CPJ (NOT FOR IM USE) IV PRN (21:53)
[2018-02-12] MEDS: CEFTRIAXONE 2 G in DEXTROSE 5% WATER 50 ML IV SCH (21:53)
[2018-02-12] MEDS ORDERED: DILTIAZEM HCL 5MG/ML 5ML VIAL IV SCH (23:00)
[2018-02-13] VITALS (88 sets, daily range): BP systolic 26–170; BP diastolic 17–123
[2018-02-13] MEDS: IPRATROPIUM/ALBUTEROL 0.5-3(2.5)MG/3ML NEB HHN SCH ×6 (00:17→20:30)
[2018-02-13] MEDS: INSULIN LISPRO 100 UNITS/ML SUBCUT SCH ×4 (00:47→18:35)
[2018-02-13] MEDS: LACTULOSE 20G/30ML UDC PO SCH ×4 (00:49→18:34)
[2018-02-13] MEDS: GENTAMICIN 0.3% OPHTH DROPS 5ML LEFTEYE SCH ×6 (00:49→20:37)
[2018-02-13] MEDS: VANCOMYCIN HCL 1000 MG/20 ML ORAL PO SCH ×4 (00:51→20:37)
[2018-02-13] MEDS: NOREPINEPHRINE 16 MG in DEXT 5% WATER 234 ML IV PRN ×2 (05:38→20:39)
[2018-02-13] MEDS: DILTIAZEM HCL 30MG TABLET PO SCH ×3 (05:39→20:36)
[2018-02-13] MEDS: PHENYLEPHRINE 80 MG in SODIUM CHLORIDE 0.9% 492 ML IV PRN ×2 (05:40→16:35)
[2018-02-13] MEDS: BLOOD SUGAR DIAGNOSTIC STRIP TEST SCH ×4 (06:00→18:18)
[2018-02-13 06:57] LABS: CHLORIDE 108 mEq/L (98-107)
[2018-02-13] MEDS: SPIRONOLACTONE 25MG TABLET PO SCH ×2 (07:34→16:28)
[2018-02-13] MEDS: PANTOPRAZOLE SODIUM 40 MG/VIAL IV SCH (08:16)
[2018-02-13] MEDS: LACTOBACILLUS GG CAPSULE PO SCH (08:17)
[2018-02-13 08:19] LABS: BG BASE EXCESS -6.4 mmol/L (-2.0-2.0); BG CARBOXYHEMOGLOBIN 1.1 % (0.5-1.5); BG DEOXYHEMOGLOBIN 5.5 % (0.0-5.0); BG FRACTION INSPIRED OXYGEN 35; BG HCO3 ACT 18.1 mmol/L (22.0-26.0); BG METHEMOGLOBIN 0.1 % (0.0-1.5); BG OXYGEN SATURATION 94.4 % (92.0-98.5); BG OXYHEMOGLOBIN 93.3 % (94.0-97.0); BG PCO2 32.3 mmHg (35.0-45.0); BG PH 7.366 (7.350-7.450); BG PO2 77.2 mmHg (75.0-100.0); BG SAMPLE SITE RIGHT RADIAL; BG TIDAL VOLUME(mL) 600 mL; BG VENT MODE VENT - A/C; BG VENT RATE 16 set
[2018-02-13 08:43] LABS: BASOPHILS % 0.7 % (0.0-2.0); EOSINOPHILS % 1.9 % (0.0-5.0); HEMATOCRIT. 32.9 % (42.0-52.0); HEMOGLOBIN. 10.1 g/dL (14.0-18.0); LYMPHOCYTES % 7.7 % (20.0-50.0); MEAN CORPUSCULAR HEMOGLOBIN 27.2 pg (28.0-32.0); MEAN CORPUSCULAR VOLUME 88.5 fL (80.0-94.0); MEAN PLATELET VOLUME 9.1 fl (7.4-10.4); MONOCYTES % 4.8 % (2.0-8.0); NEUTROPHILS % 84.9 % (40.0-76.0); PLATELET 139 x1000/uL (130-400); RED BLOOD CELL COUNT 3.72 mill/uL (4.7-6.1); RED CELL DISTRIBUTION WIDTH 17.4 % (11.6-14.6)
[2018-02-13] MEDS: MEROPENEM 500 MG in SODIUM CHLORIDE 0.9% 50 ML IV SCH (12:19)
[2018-02-13] MEDS: INSULIN GLARGINE UD 100 UNITS/ML SYR SUBCUT SCH (12:20)
[2018-02-13] MEDS: MICAFUNGIN 100 MG in SODIUM CHLORIDE 0.9% 100 ML IV SCH (20:37)
[2018-02-14] VITALS (74 sets, daily range): BP systolic 72–150; BP diastolic 32–117
[2018-02-14] MEDS: IPRATROPIUM/ALBUTEROL 0.5-3(2.5)MG/3ML NEB HHN SCH ×5 (00:06→20:35)
[2018-02-14] MEDS: LACTULOSE 20G/30ML UDC PO SCH ×4 (00:57→18:21)
[2018-02-14] MEDS: MORPHINE SULFATE 4 MG/ML CPJ (NOT FOR IM USE) IV PRN (00:58)
[2018-02-14] MEDS: VANCOMYCIN HCL 1000 MG/20 ML ORAL PO SCH ×4 (00:58→18:25)
[2018-02-14] MEDS: ACETAMINOPHEN 325MG TABLET PO PRN ×2 (01:05→22:04)
[2018-02-14] MEDS: INSULIN LISPRO 100 UNITS/ML SUBCUT SCH ×4 (01:05→18:00)
[2018-02-14] MEDS: GENTAMICIN 0.3% OPHTH DROPS 5ML LEFTEYE SCH ×6 (01:06→21:45)
[2018-02-14] MEDS: PHENYLEPHRINE 80 MG in SODIUM CHLORIDE 0.9% 492 ML IV PRN ×2 (01:52→21:51)
[2018-02-14] MEDS: BLOOD SUGAR DIAGNOSTIC STRIP TEST SCH ×4 (05:16→18:19)
[2018-02-14] MEDS: DILTIAZEM HCL 30MG TABLET PO SCH ×3 (05:16→21:45)
[2018-02-14 06:55] LABS: BASOPHILS % 1.2 % (0.0-2.0); EOSINOPHILS % 0.8 % (0.0-5.0); HEMATOCRIT. 32.8 % (42.0-52.0); HEMOGLOBIN. 10.2 g/dL (14.0-18.0); LYMPHOCYTES % 11.1 % (20.0-50.0); MEAN CORPUSCULAR HEMOGLOBIN 27.5 pg (28.0-32.0); MEAN CORPUSCULAR VOLUME 88.4 fL (80.0-94.0); MEAN PLATELET VOLUME 8.9 fl (7.4-10.4); MONOCYTES % 8.2 % (2.0-8.0); NEUTROPHILS % 78.7 % (40.0-76.0); PLATELET 144 x1000/uL (130-400); RED BLOOD CELL COUNT 3.71 mill/uL (4.7-6.1); RED CELL DISTRIBUTION WIDTH 17.5 % (11.6-14.6)
[2018-02-14 08:13] LABS: CHLORIDE 108 mEq/L (98-107)
[2018-02-14 10:39] LABS: BG BASE EXCESS 0.6 mmol/L (-2.0-2.0); BG CARBOXYHEMOGLOBIN 1.1 % (0.5-1.5); BG DEOXYHEMOGLOBIN 4.4 % (0.0-5.0); BG FRACTION INSPIRED OXYGEN 35; BG HCO3 ACT 24.2 mmol/L (22.0-26.0); BG OXYGEN SATURATION 95.6 % (92.0-98.5); BG OXYHEMOGLOBIN 94.5 % (94.0-97.0); BG PH 7.457 (7.350-7.450); BG PO2 79.2 mmHg (75.0-100.0); BG SAMPLE SITE RIGHT BRACHIAL; BG TIDAL VOLUME(mL) 600 mL; BG TOTAL HEMOGLOBIN 11.7 g/dL (12.0-18.0); BG VENT MODE VENT - A/C; BG VENT RATE 16 set
[2018-02-14] MEDS: SPIRONOLACTONE 25MG TABLET PO SCH ×2 (11:44→18:21)
[2018-02-14] MEDS: PANTOPRAZOLE SODIUM 40 MG/VIAL IV SCH (11:44)
[2018-02-14] MEDS: MEROPENEM 500 MG in SODIUM CHLORIDE 0.9% 50 ML IV SCH (11:45)
[2018-02-14] MEDS: LACTOBACILLUS GG CAPSULE PO SCH (11:46)
[2018-02-14] MEDS: INSULIN GLARGINE UD 100 UNITS/ML SYR SUBCUT SCH (11:46)
[2018-02-14] MEDS: NOREPINEPHRINE 16 MG in DEXT 5% WATER 234 ML IV PRN ×2 (12:54→21:51)
[2018-02-14] MEDS: DEXT 5%/0.45% NACL 1000ML 1,000 ML IV SCH (19:30)
[2018-02-14] MEDS: MICAFUNGIN 100 MG in SODIUM CHLORIDE 0.9% 100 ML IV SCH (21:45)
[2018-02-15] VITALS (94 sets, daily range): BP systolic 68–181; BP diastolic 24–146
[2018-02-15] MEDS: IPRATROPIUM/ALBUTEROL 0.5-3(2.5)MG/3ML NEB HHN SCH ×6 (00:05→20:19)
[2018-02-15] MEDS: BLOOD SUGAR DIAGNOSTIC STRIP TEST SCH ×4 (00:50→18:00)
[2018-02-15] MEDS: LACTULOSE 20G/30ML UDC PO SCH ×5 (00:56→23:59)
[2018-02-15] MEDS: MORPHINE SULFATE 4 MG/ML CPJ (NOT FOR IM USE) IV PRN (00:57)
[2018-02-15] MEDS: GENTAMICIN 0.3% OPHTH DROPS 5ML LEFTEYE SCH ×7 (00:58→23:59)
[2018-02-15] MEDS: INSULIN LISPRO 100 UNITS/ML SUBCUT SCH ×4 (00:58→19:03)
[2018-02-15] MEDS: VANCOMYCIN HCL 1000 MG/20 ML ORAL PO SCH ×2 (05:20→19:07)
[2018-02-15] MEDS: DILTIAZEM HCL 30MG TABLET PO SCH ×3 (05:21→22:53)
[2018-02-15] MEDS: MEROPENEM 500 MG in SODIUM CHLORIDE 0.9% 50 ML IV SCH (10:43)
[2018-02-15] MEDS: SPIRONOLACTONE 25MG TABLET PO SCH ×2 (10:43→17:15)
[2018-02-15] MEDS: LACTOBACILLUS GG CAPSULE PO SCH (10:43)
[2018-02-15] MEDS: PANTOPRAZOLE SODIUM 40 MG/VIAL IV SCH (10:44)
[2018-02-15] MEDS: INSULIN GLARGINE UD 100 UNITS/ML SYR SUBCUT SCH (10:45)
[2018-02-15] MEDS: PHENYLEPHRINE 80 MG in SODIUM CHLORIDE 0.9% 492 ML IV PRN (14:13)
[2018-02-15] MEDS: NOREPINEPHRINE 16 MG in DEXT 5% WATER 234 ML IV PRN (14:19)
[2018-02-15] MEDS: DEXT 5%/0.45% NACL 1000ML 1,000 ML IV SCH (19:30)
[2018-02-15] MEDS: MICAFUNGIN 100 MG in SODIUM CHLORIDE 0.9% 100 ML IV SCH (20:29)
[2018-02-16] VITALS (124 sets, daily range): BP systolic 61–155; BP diastolic 29–121
[2018-02-16] MEDS: PHENYLEPHRINE 80 MG in SODIUM CHLORIDE 0.9% 492 ML IV PRN (00:02)
[2018-02-16] MEDS: NOREPINEPHRINE 16 MG in DEXT 5% WATER 234 ML IV PRN (00:03)
[2018-02-16] MEDS: IPRATROPIUM/ALBUTEROL 0.5-3(2.5)MG/3ML NEB HHN SCH ×6 (00:26→20:05)
[2018-02-16] MEDS: INSULIN LISPRO 100 UNITS/ML SUBCUT SCH ×4 (00:46→18:06)
[2018-02-16] MEDS: BLOOD SUGAR DIAGNOSTIC STRIP TEST SCH ×4 (00:47→18:05)
[2018-02-16] MEDS: DILTIAZEM HCL 30MG TABLET PO SCH ×3 (05:35→22:03)
[2018-02-16] MEDS: LACTULOSE 20G/30ML UDC PO SCH ×3 (05:35→18:04)
[2018-02-16] MEDS: GENTAMICIN 0.3% OPHTH DROPS 5ML LEFTEYE SCH ×3 (05:36→11:54)
[2018-02-16] MEDS: VANCOMYCIN HCL 1000 MG/20 ML ORAL PO SCH ×2 (05:36→18:04)
[2018-02-16 05:42] LABS: HEMATOCRIT. 32.8 % (42.0-52.0); HEMOGLOBIN. 10.2 g/dL (14.0-18.0); MEAN CORPUSCULAR HEMOGLOBIN 27.9 pg (28.0-32.0); MEAN CORPUSCULAR VOLUME 89.9 fL (80.0-94.0); MEAN PLATELET VOLUME 9.3 fl (7.4-10.4); PLATELET 183 x1000/uL (130-400); RED BLOOD CELL COUNT 3.65 mill/uL (4.7-6.1); RED CELL DISTRIBUTION WIDTH 18.4 % (11.6-14.6)
[2018-02-16 07:18] LABS: PLATELET ESTIMATE NORMAL
[2018-02-16 07:45] LABS: BG BASE EXCESS -3.3 mmol/L (-2.0-2.0); BG DEOXYHEMOGLOBIN 3.1 % (0.0-5.0); BG HCO3 ACT 20.3 mmol/L (22.0-26.0); BG METHEMOGLOBIN 0.1 % (0.0-1.5); BG OXYGEN SATURATION 96.9 % (92.0-98.5); BG OXYHEMOGLOBIN 95.8 % (94.0-97.0); BG PCO2 31.5 mmHg (35.0-45.0); BG PH 7.426 (7.350-7.450); BG PO2 93.5 mmHg (75.0-100.0); BG SAMPLE SITE RIGHT RADIAL; BG TIDAL VOLUME(mL) 600 mL; BG TOTAL HEMOGLOBIN 11.3 g/dL (12.0-18.0); BG VENT MODE VENT - A/C; BG VENT RATE 16 set
[2018-02-16] MEDS: PANTOPRAZOLE SODIUM 40 MG/VIAL IV SCH (08:29)
[2018-02-16] MEDS: SPIRONOLACTONE 25MG TABLET PO SCH ×2 (09:00→18:04)
[2018-02-16] MEDS: DEXT 5%/0.45% NACL 1000ML 1,000 ML IV SCH ×2 (09:35→19:30)
[2018-02-16] MEDS: MORPHINE SULFATE 4 MG/ML CPJ (NOT FOR IM USE) IV PRN ×2 (09:51→14:54)
[2018-02-16] MEDS: LACTOBACILLUS GG CAPSULE PO SCH (11:50)
[2018-02-16] MEDS: MEROPENEM 500 MG in SODIUM CHLORIDE 0.9% 50 ML IV SCH (11:50)
[2018-02-16] MEDS: INSULIN GLARGINE UD 100 UNITS/ML SYR SUBCUT SCH (11:52)
[2018-02-16] MEDS ORDERED: LORAZEPAM 2MG/ML CPJ IV PRN (12:45)
[2018-02-16] MEDS: ACETYLCYSTEINE 100MG/ML 10% VIAL 4ML INH SCH (16:20)
[2018-02-16] MEDS: MICAFUNGIN 100 MG in SODIUM CHLORIDE 0.9% 100 ML IV SCH (21:56)
[2018-02-17] VITALS (101 sets, daily range): BP systolic 50–147; BP diastolic 24–121
[2018-02-17] MEDS: ACETYLCYSTEINE 100MG/ML 10% VIAL 4ML INH SCH ×3 (00:08→16:14)
[2018-02-17] MEDS: IPRATROPIUM/ALBUTEROL 0.5-3(2.5)MG/3ML NEB HHN SCH ×6 (00:08→20:22)
[2018-02-17] MEDS: NOREPINEPHRINE 16 MG in DEXT 5% WATER 234 ML IV PRN ×2 (00:29→20:28)
[2018-02-17] MEDS: INSULIN LISPRO 100 UNITS/ML SUBCUT SCH ×4 (00:39→18:11)
[2018-02-17] MEDS: LACTULOSE 20G/30ML UDC PO SCH ×4 (00:39→18:10)
[2018-02-17] MEDS: DILTIAZEM HCL 30MG TABLET PO SCH ×3 (06:00→22:07)
[2018-02-17] MEDS: BLOOD SUGAR DIAGNOSTIC STRIP TEST SCH ×4 (06:00→18:07)
[2018-02-17] MEDS: SPIRONOLACTONE 25MG TABLET PO SCH ×2 (06:48→18:10)
[2018-02-17] MEDS: VANCOMYCIN HCL 1000 MG/20 ML ORAL PO SCH ×2 (06:50→18:56)
[2018-02-17 07:24] LABS: HEMATOCRIT. 31.6 % (42.0-52.0); HEMOGLOBIN. 9.9 g/dL (14.0-18.0); MEAN CORPUSCULAR HEMOGLOBIN 27.8 pg (28.0-32.0); MEAN CORPUSCULAR VOLUME 88.8 fL (80.0-94.0); MEAN PLATELET VOLUME 8.8 fl (7.4-10.4); PLATELET 163 x1000/uL (130-400); RED BLOOD CELL COUNT 3.56 mill/uL (4.7-6.1); RED CELL DISTRIBUTION WIDTH 20.9 % (11.6-14.6)
[2018-02-17 08:19] LABS: CHLORIDE 105 mEq/L (98-107)
[2018-02-17] MEDS: PANTOPRAZOLE SODIUM 40 MG/VIAL IV SCH (09:19)
[2018-02-17] MEDS: LACTOBACILLUS GG CAPSULE PO SCH (09:19)
[2018-02-17] MEDS: INSULIN GLARGINE UD 100 UNITS/ML SYR SUBCUT SCH (09:20)
[2018-02-17] MEDS ORDERED: FUROSEMIDE 40MG/4ML VIAL IVP NR (09:45)
[2018-02-17] MEDS ORDERED: POTASSIUM CHLORIDE 20MEQ/PACKET NG NR (09:45)
[2018-02-17] MEDS: MEROPENEM 500 MG in SODIUM CHLORIDE 0.9% 50 ML IV SCH (10:44)
[2018-02-17 12:26] LABS: PLATELET ESTIMATE NORMAL
[2018-02-17] MEDS: MIDODRINE HCL 5MG TABLET PO SCH ×2 (13:00→17:00)
[2018-02-17] MEDS: MORPHINE SULFATE 4 MG/ML CPJ (NOT FOR IM USE) IV PRN (14:22)
[2018-02-17 14:45] LABS: INR 1.1; PARTIAL THROMBOPLASTIN TIME 27.2 sec (23.4-31.0); PROTHROMBIN TIME 11.7 sec (9.4-11.6)
[2018-02-17] MEDS: DEXT 5%/0.45% NACL 1000ML 1,000 ML IV SCH (20:27)
[2018-02-18] VITALS (95 sets, daily range): BP systolic 78–154; BP diastolic 37–128
[2018-02-18] MEDS: IPRATROPIUM/ALBUTEROL 0.5-3(2.5)MG/3ML NEB HHN SCH ×6 (00:15→20:27)
[2018-02-18] MEDS: ACETYLCYSTEINE 100MG/ML 10% VIAL 4ML INH SCH ×3 (00:18→15:33)
[2018-02-18] MEDS: BLOOD SUGAR DIAGNOSTIC STRIP TEST SCH ×4 (00:43→17:08)
[2018-02-18] MEDS: INSULIN LISPRO 100 UNITS/ML SUBCUT SCH ×4 (00:44→17:40)
[2018-02-18] MEDS: LACTULOSE 20G/30ML UDC PO SCH ×4 (06:30→17:09)
[2018-02-18] MEDS: DILTIAZEM HCL 30MG TABLET PO SCH ×3 (06:30→22:11)
[2018-02-18] MEDS: SPIRONOLACTONE 25MG TABLET PO SCH ×2 (06:31→17:39)
[2018-02-18 08:31] LABS: BG BASE EXCESS 0.8 mmol/L (-2.0-2.0); BG CARBOXYHEMOGLOBIN 1.1 % (0.5-1.5); BG DEOXYHEMOGLOBIN 3.1 % (0.0-5.0); BG FRACTION INSPIRED OXYGEN 35; BG HCO3 ACT 23.8 mmol/L (22.0-26.0); BG METHEMOGLOBIN 0.1 % (0.0-1.5); BG OXYGEN SATURATION 96.9 % (92.0-98.5); BG OXYHEMOGLOBIN 95.7 % (94.0-97.0); BG PCO2 32.6 mmHg (35.0-45.0); BG PH 7.482 (7.350-7.450); BG PO2 90.5 mmHg (75.0-100.0); BG SAMPLE SITE RIGHT BRACHIAL; BG TIDAL VOLUME(mL) 600 mL; BG TOTAL HEMOGLOBIN 10.9 g/dL (12.0-18.0); BG VENT MODE VENT - A/C; BG VENT RATE 16 set
[2018-02-18] MEDS: MIDODRINE HCL 5MG TABLET PO SCH ×3 (09:00→17:38)
[2018-02-18] MEDS ORDERED: LORAZEPAM 2MG/ML CPJ IV PRN ×2 (09:25→17:25)
[2018-02-18] MEDS: LACTOBACILLUS GG CAPSULE PO SCH (09:31)
[2018-02-18] MEDS: INSULIN GLARGINE UD 100 UNITS/ML SYR SUBCUT SCH (09:32)
[2018-02-18 09:33] LABS: CHLORIDE 108 mEq/L (98-107)
[2018-02-18 09:39] LABS: PHOSPHORUS 5.2 mg/dL (2.5-4.9)
[2018-02-18 10:00] LABS: BASOPHILS % 0.3 % (0.0-2.0); EOSINOPHILS % 0.5 % (0.0-5.0); HEMATOCRIT. 30.6 % (42.0-52.0); HEMOGLOBIN. 9.7 g/dL (14.0-18.0); LYMPHOCYTES % 9.6 % (20.0-50.0); MEAN CORPUSCULAR HEMOGLOBIN 27.9 pg (28.0-32.0); MEAN CORPUSCULAR VOLUME 88.3 fL (80.0-94.0); MEAN PLATELET VOLUME 8.3 fl (7.4-10.4); NEUTROPHILS % 80.6 % (40.0-76.0); PLATELET 190 x1000/uL (130-400); RED BLOOD CELL COUNT 3.47 mill/uL (4.7-6.1); RED CELL DISTRIBUTION WIDTH 22.6 % (11.6-14.6)
[2018-02-18] MEDS ORDERED: ALBUMIN HUMAN 25GM/100ML (25%) IV NR (10:00)
[2018-02-18] MEDS: FAMOTIDINE 20MG/2ML VIAL IV SCH (11:27)
[2018-02-18] MEDS: MEROPENEM 500 MG in SODIUM CHLORIDE 0.9% 50 ML IV SCH (11:28)
[2018-02-18] MEDS ORDERED: LIDOCAINE HCL 1% 20ML VIAL (Pyxis) INJ ONE (13:48)
[2018-02-18] MEDS ORDERED: SODIUM BICARBONATE 4% (2.4MEQ) 5ML VIAL IV ONE (13:48)
[2018-02-18] MEDS: DEXT 5%/0.45% NACL 1000ML 1,000 ML IV SCH (20:42)
[2018-02-19] VITALS (89 sets, daily range): BP systolic 77–150; BP diastolic 35–93
[2018-02-19] MEDS: BLOOD SUGAR DIAGNOSTIC STRIP TEST SCH ×3 (00:09→11:40)
[2018-02-19] MEDS: LACTULOSE 20G/30ML UDC PO SCH ×4 (00:09→17:34)
[2018-02-19] MEDS: INSULIN LISPRO 100 UNITS/ML SUBCUT SCH ×4 (00:10→17:35)
[2018-02-19] MEDS: IPRATROPIUM/ALBUTEROL 0.5-3(2.5)MG/3ML NEB HHN SCH ×6 (00:37→20:29)
[2018-02-19] MEDS: ACETYLCYSTEINE 100MG/ML 10% VIAL 4ML INH SCH ×3 (00:38→16:27)
[2018-02-19] MEDS: DILTIAZEM HCL 30MG TABLET PO SCH ×3 (06:17→21:18)
[2018-02-19] MEDS: SPIRONOLACTONE 25MG TABLET PO SCH ×2 (06:18→16:27)
[2018-02-19] MEDS: LACTOBACILLUS GG CAPSULE PO SCH (08:07)
[2018-02-19] MEDS: MIDODRINE HCL 5MG TABLET PO SCH ×3 (08:08→16:26)
[2018-02-19] MEDS: FAMOTIDINE 20MG/2ML VIAL IV SCH (08:08)
[2018-02-19] MEDS: LORAZEPAM 2MG/ML CPJ IV PRN (08:25)
[2018-02-19] MEDS: MORPHINE SULFATE 4 MG/ML CPJ (NOT FOR IM USE) IV PRN ×2 (08:26→16:26)
[2018-02-19] MEDS: MEROPENEM 500 MG in SODIUM CHLORIDE 0.9% 50 ML IV SCH (11:40)
[2018-02-19] MEDS: INSULIN GLARGINE UD 100 UNITS/ML SYR SUBCUT SCH (11:44)
[2018-02-19] MEDS: NYSTATIN POWDER 15GM TOP SCH (21:17)
[2018-02-19] MEDS: DEXT 5%/0.45% NACL 1000ML 1,000 ML IV SCH (21:27)
[2018-02-20] VITALS (41 sets, daily range): BP systolic 53–134; BP diastolic 20–89
[2018-02-20] MEDS: ACETYLCYSTEINE 100MG/ML 10% VIAL 4ML INH SCH ×3 (00:34→16:00)
[2018-02-20] MEDS: IPRATROPIUM/ALBUTEROL 0.5-3(2.5)MG/3ML NEB HHN SCH ×6 (00:34→21:17)
[2018-02-20] MEDS: LACTULOSE 20G/30ML UDC PO SCH ×5 (00:40→23:08)
[2018-02-20] MEDS: INSULIN LISPRO 100 UNITS/ML SUBCUT SCH ×4 (00:41→18:13)
[2018-02-20 05:34] LABS: CHLORIDE 107 mEq/L (98-107)
[2018-02-20 05:36] LABS: HEMATOCRIT. 26.4 % (42.0-52.0); HEMOGLOBIN. 8.2 g/dL (14.0-18.0); MEAN CORPUSCULAR HEMOGLOBIN 28.1 pg (28.0-32.0); MEAN CORPUSCULAR VOLUME 90.5 fL (80.0-94.0); MEAN PLATELET VOLUME 9.5 fl (7.4-10.4); PLATELET 151 x1000/uL (130-400); RED BLOOD CELL COUNT 2.92 mill/uL (4.7-6.1); RED CELL DISTRIBUTION WIDTH 21.6 % (11.6-14.6)
[2018-02-20 05:38] LABS: INR 1.1; PROTHROMBIN TIME 11.7 sec (9.4-11.6)
[2018-02-20] MEDS: BLOOD SUGAR DIAGNOSTIC STRIP TEST SCH ×5 (05:50→23:33)
[2018-02-20] MEDS: DILTIAZEM HCL 30MG TABLET PO SCH ×3 (06:06→21:24)
[2018-02-20] MEDS: SPIRONOLACTONE 25MG TABLET PO SCH ×2 (06:07→18:11)
[2018-02-20 07:17] LABS: PLATELET ESTIMATE NORMAL
[2018-02-20] MEDS: LORAZEPAM 2MG/ML CPJ IV PRN (08:24)
[2018-02-20] MEDS: FAMOTIDINE 20MG/2ML VIAL IV SCH (10:14)
[2018-02-20] MEDS: LACTOBACILLUS GG CAPSULE PO SCH (10:15)
[2018-02-20] MEDS: MIDODRINE HCL 5MG TABLET PO SCH ×3 (10:15→18:11)
[2018-02-20 10:21] LABS: BG BASE EXCESS 3.5 mmol/L (-2.0-2.0); BG CARBOXYHEMOGLOBIN 0.4 % (0.5-1.5); BG DEOXYHEMOGLOBIN 6.2 % (0.0-5.0); BG FRACTION INSPIRED OXYGEN 35; BG HCO3 ACT 27.3 mmol/L (22.0-26.0); BG METHEMOGLOBIN 0.1 % (0.0-1.5); BG OXYGEN SATURATION 93.8 % (92.0-98.5); BG OXYHEMOGLOBIN 93.3 % (94.0-97.0); BG PCO2 38.5 mmHg (35.0-45.0); BG PH 7.469 (7.350-7.450); BG PO2 73.1 mmHg (75.0-100.0); BG SAMPLE SITE RIGHT RADIAL; BG TIDAL VOLUME(mL) 600 mL; BG TOTAL HEMOGLOBIN 10.3 g/dL (12.0-18.0); BG VENT MODE VENT - A/C; BG VENT RATE 14 set
[2018-02-20] MEDS ORDERED: DEXTROSE 50% WATER 50ML SYRINGE IV PRN (10:30)
[2018-02-20] MEDS: MEROPENEM 500 MG in SODIUM CHLORIDE 0.9% 50 ML IV SCH (10:57)
[2018-02-20] MEDS: INSULIN GLARGINE UD 100 UNITS/ML SYR SUBCUT SCH (11:27)
[2018-02-20] MEDS ORDERED: BLOOD SUGAR DIAGNOSTIC STRIP TEST SCH (12:00)
[2018-02-20] MEDS ORDERED: VECURONIUM BROMIDE 10 MG/VIAL IV ONE (16:40)
[2018-02-20] MEDS ORDERED: ROCURONIUM BROMIDE 10MG/ML VIAL 5ML IV ONE (16:48)
[2018-02-20] MEDS ORDERED: ETOMIDATE 2MG/ML 10ML VIAL IV ONE (17:03)
[2018-02-20] MEDS: DEXT 5%/0.45% NACL 1000ML 1,000 ML IV SCH (19:30)
[2018-02-20] MEDS ORDERED: EPOETIN ALFA 4000UNITS/ML VIAL SUBCUT SCH (21:00)
[2018-02-21] VITALS (52 sets, daily range): BP systolic 53–153; BP diastolic 35–115
[2018-02-21] MEDS: ACETYLCYSTEINE 100MG/ML 10% VIAL 4ML INH SCH ×3 (01:09→13:29)
[2018-02-21] MEDS: IPRATROPIUM/ALBUTEROL 0.5-3(2.5)MG/3ML NEB HHN SCH ×6 (01:09→19:50)
[2018-02-21] MEDS: LACTULOSE 20G/30ML UDC PO SCH ×5 (05:06→23:28)
[2018-02-21] MEDS: DILTIAZEM HCL 30MG TABLET PO SCH ×3 (05:06→22:00)
[2018-02-21] MEDS: BLOOD SUGAR DIAGNOSTIC STRIP TEST SCH ×3 (05:15→17:41)
[2018-02-21] MEDS: INSULIN LISPRO 100 UNITS/ML SUBCUT SCH ×6 (05:19→23:40)
[2018-02-21 05:35] LABS: EOSINOPHILS % 0.6 % (0.0-5.0); HEMATOCRIT. 27.5 % (42.0-52.0); HEMOGLOBIN. 8.3 g/dL (14.0-18.0); LYMPHOCYTES % 8.4 % (20.0-50.0); MEAN CORPUSCULAR HEMOGLOBIN 27.6 pg (28.0-32.0); MEAN CORPUSCULAR VOLUME 91.1 fL (80.0-94.0); MEAN PLATELET VOLUME 9.3 fl (7.4-10.4); MONOCYTES % 10.5 % (2.0-8.0); NEUTROPHILS % 79.5 % (40.0-76.0); PLATELET 160 x1000/uL (130-400); RED BLOOD CELL COUNT 3.02 mill/uL (4.7-6.1); RED CELL DISTRIBUTION WIDTH 20.6 % (11.6-14.6)
[2018-02-21 05:45] LABS: CHLORIDE 103 mEq/L (98-107)
[2018-02-21] MEDS ORDERED: POTASSIUM CHLORIDE 20MEQ/PACKET PO NR (08:15)
[2018-02-21 08:30] LABS: BG BASE EXCESS 0.1 mmol/L (-2.0-2.0); BG CARBOXYHEMOGLOBIN 1.2 % (0.5-1.5); BG DEOXYHEMOGLOBIN 1.8 % (0.0-5.0); BG FRACTION INSPIRED OXYGEN 35; BG HCO3 ACT 23.9 mmol/L (22.0-26.0); BG METHEMOGLOBIN 0.2 % (0.0-1.5); BG OXYGEN SATURATION 98.2 % (92.0-98.5); BG OXYHEMOGLOBIN 96.8 % (94.0-97.0); BG PCO2 35.2 mmHg (35.0-45.0); BG PO2 118.5 mmHg (75.0-100.0); BG SAMPLE SITE RIGHT BRACHIAL; BG TIDAL VOLUME(mL) 600 mL; BG VENT MODE VENT - A/C; BG VENT RATE 14 set
[2018-02-21] MEDS: MIDODRINE HCL 5MG TABLET PO SCH ×3 (08:36→17:06)
[2018-02-21] MEDS: SPIRONOLACTONE 25MG TABLET PO SCH ×2 (08:36→17:07)
[2018-02-21] MEDS: FAMOTIDINE 20MG/2ML VIAL IV SCH (08:37)
[2018-02-21] MEDS: LACTOBACILLUS GG CAPSULE PO SCH (08:39)
[2018-02-21] MEDS: NYSTATIN POWDER 15GM TOP SCH ×2 (08:40→23:28)
[2018-02-21 10:11] LABS: PHOSPHORUS 4.8 mg/dL (2.5-4.9)
[2018-02-21] MEDS: INSULIN GLARGINE UD 100 UNITS/ML SYR SUBCUT SCH (10:21)
[2018-02-21] MEDS: MORPHINE SULFATE 4 MG/ML CPJ (NOT FOR IM USE) IV PRN ×2 (12:17→17:40)
[2018-02-21] MEDS ORDERED: ALBUMIN HUMAN 25GM/100ML (25%) IV NR (20:00)
[2018-02-21] MEDS: NOREPINEPHRINE 4 MG in DEXT 5% WATER 246 ML IV PRN (23:47)
[2018-02-22] VITALS (99 sets, daily range): BP systolic 45–192; BP diastolic 24–112
[2018-02-22] MEDS: IPRATROPIUM/ALBUTEROL 0.5-3(2.5)MG/3ML NEB HHN SCH ×6 (00:45→20:19)
[2018-02-22] MEDS: DEXT 5%/0.45% NACL 1000ML 1,000 ML IV SCH ×2 (01:26→22:37)
[2018-02-22 06:00] LABS: HEMATOCRIT. 25.7 % (42.0-52.0); HEMOGLOBIN. 7.8 g/dL (14.0-18.0); MEAN CORPUSCULAR HEMOGLOBIN 27.4 pg (28.0-32.0); MEAN CORPUSCULAR VOLUME 90.7 fL (80.0-94.0); MEAN PLATELET VOLUME 9.2 fl (7.4-10.4); PLATELET 207 x1000/uL (130-400); RED BLOOD CELL COUNT 2.83 mill/uL (4.7-6.1); RED CELL DISTRIBUTION WIDTH 20.4 % (11.6-14.6)
[2018-02-22] MEDS: BLOOD SUGAR DIAGNOSTIC STRIP TEST SCH ×4 (06:00→17:39)
[2018-02-22] MEDS: LACTULOSE 20G/30ML UDC PO SCH ×3 (06:00→17:39)
[2018-02-22] MEDS: DILTIAZEM HCL 30MG TABLET PO SCH ×3 (06:00→22:00)
[2018-02-22 06:42] LABS: CHLORIDE 105 mEq/L (98-107)
[2018-02-22] MEDS: INSULIN LISPRO 100 UNITS/ML SUBCUT SCH ×2 (07:06→13:58)
[2018-02-22] MEDS: SPIRONOLACTONE 25MG TABLET PO SCH ×2 (07:15→17:40)
[2018-02-22] MEDS: NYSTATIN POWDER 15GM TOP SCH ×2 (09:00→22:39)
[2018-02-22 09:13] LABS: PLATELET ESTIMATE NORMAL
[2018-02-22] MEDS: LACTOBACILLUS GG CAPSULE PO SCH (09:47)
[2018-02-22] MEDS: MIDODRINE HCL 5MG TABLET PO SCH ×3 (09:47→17:40)
[2018-02-22] MEDS: FAMOTIDINE 20MG/2ML VIAL IV SCH (09:48)
[2018-02-22 10:30] LABS: BG BASE EXCESS 1.1 mmol/L (-2.0-2.0); BG CARBOXYHEMOGLOBIN 0.5 % (0.5-1.5); BG DEOXYHEMOGLOBIN 5.6 % (0.0-5.0); BG FRACTION INSPIRED OXYGEN 35; BG HCO3 ACT 24.5 mmol/L (22.0-26.0); BG METHEMOGLOBIN 0.3 % (0.0-1.5); BG OXYGEN SATURATION 94.4 % (92.0-98.5); BG OXYHEMOGLOBIN 93.6 % (94.0-97.0); BG PCO2 34.2 mmHg (35.0-45.0); BG PH 7.473 (7.350-7.450); BG PO2 71.8 mmHg (75.0-100.0); BG SAMPLE SITE RIGHT BRACHIAL; BG TIDAL VOLUME(mL) 600 mL; BG TOTAL HEMOGLOBIN 9.7 g/dL (12.0-18.0); BG VENT MODE VENT - A/C; BG VENT RATE 10 set
[2018-02-22 12:23] LABS: HEMATOCRIT 26.7 % (42.0-52.0); HEMOGLOBIN 8.2 g/dL (14.0-18.0)
[2018-02-22] MEDS: INSULIN GLARGINE UD 100 UNITS/ML SYR SUBCUT SCH (13:04)
[2018-02-22] MEDS: NOREPINEPHRINE 4 MG in DEXT 5% WATER 246 ML IV PRN (17:40)
[2018-02-22] MEDS: EPOETIN ALFA 10000UNITS/ML VIAL SUBCUT SCH (22:38)
[2018-02-23] VITALS (92 sets, daily range): BP systolic 32–198; BP diastolic 14–160
[2018-02-23] MEDS: IPRATROPIUM/ALBUTEROL 0.5-3(2.5)MG/3ML NEB HHN SCH ×6 (00:38→21:03)
[2018-02-23] MEDS: INSULIN LISPRO 100 UNITS/ML SUBCUT SCH ×4 (06:00→17:34)
[2018-02-23] MEDS: DILTIAZEM HCL 30MG TABLET PO SCH ×3 (06:00→21:48)
[2018-02-23] MEDS: LACTULOSE 20G/30ML UDC PO SCH ×2 (06:00)
[2018-02-23] MEDS: BLOOD SUGAR DIAGNOSTIC STRIP TEST SCH ×4 (06:22→17:35)
[2018-02-23 06:59] LABS: CHLORIDE 110 mEq/L (98-107)
[2018-02-23 07:07] LABS: HEMATOCRIT. 24.6 % (42.0-52.0); HEMOGLOBIN. 7.5 g/dL (14.0-18.0); MEAN CORPUSCULAR HEMOGLOBIN 27.7 pg (28.0-32.0); MEAN CORPUSCULAR VOLUME 90.6 fL (80.0-94.0); MEAN PLATELET VOLUME 8.6 fl (7.4-10.4); PLATELET 237 x1000/uL (130-400); RED BLOOD CELL COUNT 2.71 mill/uL (4.7-6.1)
[2018-02-23] MEDS: SPIRONOLACTONE 25MG TABLET PO SCH ×2 (07:15→17:35)
[2018-02-23] MEDS: FAMOTIDINE 20MG/2ML VIAL IV SCH (09:00)
[2018-02-23] MEDS: LACTOBACILLUS GG CAPSULE PO SCH (09:00)
[2018-02-23] MEDS: MIDODRINE HCL 5MG TABLET PO SCH ×3 (09:00→17:35)
[2018-02-23] MEDS: NYSTATIN POWDER 15GM TOP SCH ×2 (09:50→22:17)
[2018-02-23] MEDS: INSULIN GLARGINE UD 100 UNITS/ML SYR SUBCUT SCH (10:39)
[2018-02-23] MEDS: DEXT 5%/0.45% NACL 1000ML 1,000 ML IV SCH (10:39)
[2018-02-23 12:35] LABS: NUCLEATED RED BLOOD CELLS 3 /100 WBC
[2018-02-23 12:36] LABS: PLATELET ESTIMATE NORMAL
[2018-02-23] MEDS: NOREPINEPHRINE 4 MG in DEXT 5% WATER 246 ML IV PRN (15:12)
[2018-02-23] MEDS: METRONIDAZOLE 500 MG PREMIX 100 ML IV SCH (18:01)
[2018-02-23] MEDS: VANCOMYCIN HCL 1000 MG/20 ML ORAL PO SCH (18:02)
[2018-02-23] MEDS: ACETAMINOPHEN 325MG TABLET PO PRN (20:25)
[2018-02-24] VITALS (62 sets, daily range): BP systolic 89–157; BP diastolic 26–145
[2018-02-24] MEDS: IPRATROPIUM/ALBUTEROL 0.5-3(2.5)MG/3ML NEB HHN SCH ×6 (00:02→20:19)
[2018-02-24] MEDS: BLOOD SUGAR DIAGNOSTIC STRIP TEST SCH ×4 (00:08→18:00)
[2018-02-24] MEDS: INSULIN LISPRO 100 UNITS/ML SUBCUT SCH ×4 (00:11→20:18)
[2018-02-24] MEDS: VANCOMYCIN HCL 1000 MG/20 ML ORAL PO SCH ×4 (02:09→19:46)
[2018-02-24] MEDS: METRONIDAZOLE 500 MG PREMIX 100 ML IV SCH ×3 (02:10→19:47)
[2018-02-24] MEDS: DILTIAZEM HCL 30MG TABLET PO SCH ×3 (06:00→22:33)
[2018-02-24 07:11] LABS: BG CARBOXYHEMOGLOBIN 0.6 % (0.5-1.5); BG DEOXYHEMOGLOBIN 2.3 % (0.0-5.0); BG HCO3 ACT 21.8 mmol/L (22.0-26.0); BG METHEMOGLOBIN 0.1 % (0.0-1.5); BG OXYGEN SATURATION 97.7 % (92.0-98.5); BG PCO2 37.5 mmHg (35.0-45.0); BG PH 7.382 (7.350-7.450); BG PO2 110.7 mmHg (75.0-100.0); BG SAMPLE SITE RIGHT RADIAL; BG TIDAL VOLUME(mL) 600 mL; BG TOTAL HEMOGLOBIN 9.1 g/dL (12.0-18.0); BG VENT MODE VENT - SIMV; BG VENT RATE 8 set
[2018-02-24] MEDS: NYSTATIN POWDER 15GM TOP SCH ×2 (10:00→22:33)
[2018-02-24] MEDS: LACTOBACILLUS GG CAPSULE PO SCH (10:01)
[2018-02-24] MEDS: MIDODRINE HCL 5MG TABLET PO SCH ×3 (10:01→19:45)
[2018-02-24] MEDS: FAMOTIDINE 20MG/2ML VIAL IV SCH (10:01)
[2018-02-24 11:14] LABS: HEMATOCRIT 24.3 % (42.0-52.0); HEMOGLOBIN 7.5 g/dL (14.0-18.0); MEAN CORPUSCULAR HEMOGLOBIN 27.9 pg (28.0-32.0); MEAN CORPUSCULAR VOLUME 90.6 fL (80.0-94.0); PLATELET 219 x1000/uL (130-400); RED BLOOD CELL COUNT 2.68 mill/uL (4.7-6.1); RED CELL DISTRIBUTION WIDTH 19.9 % (11.6-14.6)
[2018-02-24] MEDS: INSULIN GLARGINE UD 100 UNITS/ML SYR SUBCUT SCH (11:48)
[2018-02-24] MEDS: LORAZEPAM 2MG/ML CPJ IV PRN (14:50)
[2018-02-24] MEDS: EPOETIN ALFA 10000UNITS/ML VIAL SUBCUT SCH (22:32)
[2018-02-25] VITALS (42 sets, daily range): BP systolic 79–161; BP diastolic 37–109
[2018-02-25] MEDS: IPRATROPIUM/ALBUTEROL 0.5-3(2.5)MG/3ML NEB HHN SCH ×6 (00:12→20:51)
[2018-02-25] MEDS: VANCOMYCIN HCL 1000 MG/20 ML ORAL PO SCH ×4 (00:37→18:19)
[2018-02-25] MEDS: INSULIN LISPRO 100 UNITS/ML SUBCUT SCH ×4 (00:38→18:18)
[2018-02-25] MEDS: METRONIDAZOLE 500 MG PREMIX 100 ML IV SCH ×4 (02:00→18:20)
[2018-02-25] MEDS: BLOOD SUGAR DIAGNOSTIC STRIP TEST SCH ×4 (06:00→18:20)
[2018-02-25] MEDS: DILTIAZEM HCL 30MG TABLET PO SCH ×3 (06:03→21:09)
[2018-02-25 09:06] LABS: HEMATOCRIT. 29.8 % (42.0-52.0); HEMOGLOBIN. 9.1 g/dL (14.0-18.0); MEAN CORPUSCULAR HEMOGLOBIN 27.4 pg (28.0-32.0); MEAN CORPUSCULAR VOLUME 89.6 fL (80.0-94.0); MEAN PLATELET VOLUME 8.2 fl (7.4-10.4); PLATELET 242 x1000/uL (130-400); RED BLOOD CELL COUNT 3.32 mill/uL (4.7-6.1); RED CELL DISTRIBUTION WIDTH 19.7 % (11.6-14.6)
[2018-02-25 09:26] LABS: PHOSPHORUS 4.2 mg/dL (2.5-4.9)
[2018-02-25] MEDS: NYSTATIN POWDER 15GM TOP SCH ×2 (09:50→22:12)
[2018-02-25] MEDS: MORPHINE SULFATE 4 MG/ML CPJ (NOT FOR IM USE) IV PRN ×2 (09:51→16:31)
[2018-02-25] MEDS: FAMOTIDINE 20MG/2ML VIAL IV SCH (11:35)
[2018-02-25] MEDS: LACTOBACILLUS GG CAPSULE PO SCH (11:35)
[2018-02-25] MEDS: INSULIN GLARGINE UD 100 UNITS/ML SYR SUBCUT SCH (11:35)
[2018-02-25] MEDS: MIDODRINE HCL 5MG TABLET PO SCH ×3 (11:36→18:17)
[2018-02-25 12:26] LABS: PLATELET ESTIMATE NORMAL
[2018-02-25] MEDS ORDERED: DIPHENHYDRAMINE 50MG/ML VIAL IV PRN (16:30)
[2018-02-26] VITALS (24 sets, daily range): BP systolic 85–121; BP diastolic 33–83
[2018-02-26] MEDS: BLOOD SUGAR DIAGNOSTIC STRIP TEST SCH ×4 (00:13→18:00)
[2018-02-26] MEDS: IPRATROPIUM/ALBUTEROL 0.5-3(2.5)MG/3ML NEB HHN SCH ×6 (00:30→20:26)
[2018-02-26] MEDS: VANCOMYCIN HCL 1000 MG/20 ML ORAL PO SCH ×3 (00:38→15:21)
[2018-02-26] MEDS: INSULIN LISPRO 100 UNITS/ML SUBCUT SCH ×3 (00:38→15:19)
[2018-02-26] MEDS: METRONIDAZOLE 500 MG PREMIX 100 ML IV SCH ×2 (02:41→11:28)
[2018-02-26 05:36] LABS: BASOPHILS % 1.3 % (0.0-2.0); EOSINOPHILS % 0.8 % (0.0-5.0); HEMATOCRIT. 25.5 % (42.0-52.0); HEMOGLOBIN. 8.1 g/dL (14.0-18.0); LYMPHOCYTES % 8.1 % (20.0-50.0); MEAN CORPUSCULAR HEMOGLOBIN 27.9 pg (28.0-32.0); MEAN CORPUSCULAR VOLUME 87.3 fL (80.0-94.0); MEAN PLATELET VOLUME 8.3 fl (7.4-10.4); MONOCYTES % 8.6 % (2.0-8.0); NEUTROPHILS % 81.2 % (40.0-76.0); PLATELET 250 x1000/uL (130-400); RED BLOOD CELL COUNT 2.92 mill/uL (4.7-6.1); RED CELL DISTRIBUTION WIDTH 19.5 % (11.6-14.6)
[2018-02-26] MEDS: DILTIAZEM HCL 30MG TABLET PO SCH ×3 (05:36→21:12)
[2018-02-26] MEDS: FAMOTIDINE 20MG/2ML VIAL IV SCH (11:27)
[2018-02-26] MEDS: LACTOBACILLUS GG CAPSULE PO SCH (11:27)
[2018-02-26] MEDS: MIDODRINE HCL 5MG TABLET PO SCH ×2 (11:27→15:18)
[2018-02-26] MEDS: NYSTATIN POWDER 15GM TOP SCH ×2 (11:27→21:14)
[2018-02-26] MEDS: INSULIN GLARGINE UD 100 UNITS/ML SYR SUBCUT SCH (11:28)
[2018-02-26 11:53] LABS: PHOSPHORUS 4.8 mg/dL (2.5-4.9)
[2018-02-26] MEDS ORDERED: KCL 20MEQ/100ML PREMIX 100 ML IV SCH (12:00)
[2018-02-26 13:27] LABS: INR 1.1; PROTHROMBIN TIME 11.9 sec (9.4-11.6)
[2018-02-26 14:18] LABS: BG BASE EXCESS -1.2 mmol/L (-2.0-2.0); BG CARBOXYHEMOGLOBIN 0.3 % (0.5-1.5); BG FRACTION INSPIRED OXYGEN 35; BG HCO3 ACT 24.1 mmol/L (22.0-26.0); BG METHEMOGLOBIN 0.1 % (0.0-1.5); BG OXYGEN SATURATION 83.9 % (92.0-98.5); BG OXYHEMOGLOBIN 83.6 % (94.0-97.0); BG PCO2 42.5 mmHg (35.0-45.0); BG PH 7.371 (7.350-7.450); BG PO2 53.1 mmHg (75.0-100.0); BG PRESSURE SUPPORT 16; BG SAMPLE SITE RIGHT RADIAL; BG TIDAL VOLUME(mL) 600 mL; BG TOTAL HEMOGLOBIN 8.9 g/dL (12.0-18.0); BG VENT MODE VENT - SIMV; BG VENT RATE 6 set
[2018-02-26 18:50] LABS: BG BASE EXCESS -2.5 mmol/L (-2.0-2.0); BG CARBOXYHEMOGLOBIN 0.1 % (0.5-1.5); BG DEOXYHEMOGLOBIN 1.1 % (0.0-5.0); BG FRACTION INSPIRED OXYGEN 50; BG METHEMOGLOBIN 0.3 % (0.0-1.5); BG OXYGEN SATURATION 98.9 % (92.0-98.5); BG OXYHEMOGLOBIN 98.5 % (94.0-97.0); BG PCO2 36.4 mmHg (35.0-45.0); BG PH 7.399 (7.350-7.450); BG PO2 164.2 mmHg (75.0-100.0); BG PRESSURE SUPPORT 16; BG SAMPLE SITE RIGHT RADIAL; BG TIDAL VOLUME(mL) 600 mL; BG TOTAL HEMOGLOBIN 8.4 g/dL (12.0-18.0); BG VENT MODE VENT - SIMV; BG VENT RATE 6 set
[2018-02-27] VITALS (28 sets, daily range): BP systolic 83–124; BP diastolic 42–89
[2018-02-27] MEDS: IPRATROPIUM/ALBUTEROL 0.5-3(2.5)MG/3ML NEB HHN SCH ×7 (00:24→23:49)
[2018-02-27] MEDS: VANCOMYCIN HCL 1000 MG/20 ML ORAL PO SCH ×4 (00:52→18:40)
[2018-02-27] MEDS: INSULIN LISPRO 100 UNITS/ML SUBCUT SCH ×4 (00:53→18:00)
[2018-02-27] MEDS: BLOOD SUGAR DIAGNOSTIC STRIP TEST SCH ×4 (00:53→18:40)
[2018-02-27] MEDS: LORAZEPAM 2MG/ML CPJ IV PRN (00:54)
[2018-02-27] MEDS: METRONIDAZOLE 500 MG PREMIX 100 ML IV SCH ×3 (01:54→17:29)
[2018-02-27] MEDS: DILTIAZEM HCL 30MG TABLET PO SCH ×3 (05:54→22:11)
[2018-02-27 05:58] LABS: BASOPHILS % 1.1 % (0.0-2.0); EOSINOPHILS % 0.7 % (0.0-5.0); HEMATOCRIT. 24.6 % (42.0-52.0); HEMOGLOBIN. 7.6 g/dL (14.0-18.0); LYMPHOCYTES % 8.5 % (20.0-50.0); MEAN CORPUSCULAR HEMOGLOBIN 27.2 pg (28.0-32.0); MEAN CORPUSCULAR VOLUME 87.9 fL (80.0-94.0); MEAN PLATELET VOLUME 7.9 fl (7.4-10.4); MONOCYTES % 9.3 % (2.0-8.0); NEUTROPHILS % 80.4 % (40.0-76.0); PLATELET 257 x1000/uL (130-400); RED CELL DISTRIBUTION WIDTH 18.6 % (11.6-14.6)
[2018-02-27] MEDS: FAMOTIDINE 20MG/2ML VIAL IV SCH (09:00)
[2018-02-27] MEDS: LACTOBACILLUS GG CAPSULE PO SCH (09:00)
[2018-02-27] MEDS: NYSTATIN POWDER 15GM TOP SCH ×2 (09:00→22:12)
[2018-02-27] MEDS: MIDODRINE HCL 5MG TABLET PO SCH ×3 (09:00→17:27)
[2018-02-27] MEDS: INSULIN GLARGINE UD 100 UNITS/ML SYR SUBCUT SCH (10:00)
[2018-02-27] MEDS ORDERED: DOPAMINE 400MG PREMIX 250 ML IV ONE (14:30)
[2018-02-27] MEDS ORDERED: HEPARIN 1000 UNITS/ML 10ML ONE (16:07)
[2018-02-27] MEDS: EPOETIN ALFA 10000UNITS/ML VIAL SUBCUT SCH (22:12)
[2018-02-28] VITALS (28 sets, daily range): BP systolic 90–143; BP diastolic 44–79
[2018-02-28] MEDS: BLOOD SUGAR DIAGNOSTIC STRIP TEST SCH ×5 (00:08→23:50)
[2018-02-28] MEDS: INSULIN LISPRO 100 UNITS/ML SUBCUT SCH ×5 (00:23→23:50)
[2018-02-28] MEDS: VANCOMYCIN HCL 1000 MG/20 ML ORAL PO SCH ×5 (00:23→23:55)
[2018-02-28] MEDS: METRONIDAZOLE 500 MG PREMIX 100 ML IV SCH ×3 (02:37→17:29)
[2018-02-28] MEDS: IPRATROPIUM/ALBUTEROL 0.5-3(2.5)MG/3ML NEB HHN SCH ×5 (04:15→20:33)
[2018-02-28] MEDS: DILTIAZEM HCL 30MG TABLET PO SCH ×3 (05:09→21:34)
[2018-02-28 06:14] LABS: HEMATOCRIT. 29.3 % (42.0-52.0); MEAN CORPUSCULAR HEMOGLOBIN 27.7 pg (28.0-32.0); MEAN CORPUSCULAR VOLUME 87.7 fL (80.0-94.0); MEAN PLATELET VOLUME 8.1 fl (7.4-10.4); PLATELET 259 x1000/uL (130-400); RED BLOOD CELL COUNT 3.34 mill/uL (4.7-6.1)
[2018-02-28 06:45] LABS: HEMOGLOBIN. 9.3 g/dL (14.0-18.0)
[2018-02-28 07:26] LABS: BG BASE EXCESS 0.7 mmol/L (-2.0-2.0); BG CARBOXYHEMOGLOBIN 1.1 % (0.5-1.5); BG DEOXYHEMOGLOBIN 4.2 % (0.0-5.0); BG HCO3 ACT 25.1 mmol/L (22.0-26.0); BG METHEMOGLOBIN 0.3 % (0.0-1.5); BG OXYGEN SATURATION 95.7 % (92.0-98.5); BG OXYHEMOGLOBIN 94.4 % (94.0-97.0); BG PCO2 39.5 mmHg (35.0-45.0); BG PH 7.421 (7.350-7.450); BG PO2 81.7 mmHg (75.0-100.0); BG PRESSURE SUPPORT 16; BG SAMPLE SITE RIGHT RADIAL; BG TIDAL VOLUME(mL) 600 mL; BG TOTAL HEMOGLOBIN 9.8 g/dL (12.0-18.0); BG VENT MODE VENT - SIMV; BG VENT RATE 6 set
[2018-02-28] MEDS ORDERED: SODIUM BICARBONATE 4% (2.4MEQ) 5ML VIAL IV ONE (08:06)
[2018-02-28] MEDS ORDERED: LIDOCAINE HCL/PF 1% 10 MG/ML 5ML VIAL ONE (08:06)
[2018-02-28] MEDS: NYSTATIN POWDER 15GM TOP SCH ×2 (09:00→21:35)
[2018-02-28] MEDS: FAMOTIDINE 20MG/2ML VIAL IV SCH (09:00)
[2018-02-28] MEDS: MIDODRINE HCL 5MG TABLET PO SCH ×3 (09:00→17:09)
[2018-02-28] MEDS: LACTOBACILLUS GG CAPSULE PO SCH (09:00)
[2018-02-28] MEDS: INSULIN GLARGINE UD 100 UNITS/ML SYR SUBCUT SCH (10:00)
[2018-02-28 13:24] LABS: INR 1.2
[2018-02-28 13:50] LABS: PLATELET ESTIMATE NORMAL
[2018-03-01] VITALS (61 sets, daily range): BP systolic 65–164; BP diastolic 24–134
[2018-03-01] MEDS: IPRATROPIUM/ALBUTEROL 0.5-3(2.5)MG/3ML NEB HHN SCH ×6 (00:30→20:31)
[2018-03-01] MEDS: METRONIDAZOLE 500 MG PREMIX 100 ML IV SCH ×3 (02:55→18:46)
[2018-03-01] MEDS: BLOOD SUGAR DIAGNOSTIC STRIP TEST SCH ×3 (06:33→18:20)
[2018-03-01] MEDS: VANCOMYCIN HCL 1000 MG/20 ML ORAL PO SCH ×3 (06:39→18:46)
[2018-03-01] MEDS: INSULIN LISPRO 100 UNITS/ML SUBCUT SCH ×3 (06:39→18:47)
[2018-03-01] MEDS: DILTIAZEM HCL 30MG TABLET PO SCH ×3 (06:39→21:05)
[2018-03-01 07:37] LABS: HEMATOCRIT. 28.4 % (42.0-52.0); HEMOGLOBIN. 8.9 g/dL (14.0-18.0); MEAN CORPUSCULAR HEMOGLOBIN 27.7 pg (28.0-32.0); MEAN CORPUSCULAR VOLUME 88.5 fL (80.0-94.0); PLATELET 231 x1000/uL (130-400); RED BLOOD CELL COUNT 3.21 mill/uL (4.7-6.1); RED CELL DISTRIBUTION WIDTH 18.3 % (11.6-14.6)
[2018-03-01] MEDS ORDERED: POTASSIUM CHLORIDE 20MEQ/PACKET NG NR (08:45)
[2018-03-01] MEDS: MIDODRINE HCL 5MG TABLET PO SCH ×3 (09:00→18:46)
[2018-03-01] MEDS: FAMOTIDINE 20MG/2ML VIAL IV SCH (09:37)
[2018-03-01] MEDS: LACTOBACILLUS GG CAPSULE PO SCH (09:37)
[2018-03-01] MEDS: INSULIN GLARGINE UD 100 UNITS/ML SYR SUBCUT SCH (09:39)
[2018-03-01] MEDS: NYSTATIN POWDER 15GM TOP SCH ×2 (09:46→21:04)
[2018-03-01] MEDS ORDERED: GUAIFENESIN 200MG/10ML SUGAR FREE UDC PO PRN (10:00)
[2018-03-01] MEDS ORDERED: IPRATROPIUM/ALBUTEROL 0.5-3(2.5)MG/3ML NEB HHN PRN (10:45)
[2018-03-01 12:55] LABS: PLATELET ESTIMATE NORMAL
[2018-03-02] VITALS (18 sets, daily range): BP systolic 93–137; BP diastolic 56–78
[2018-03-02] MEDS: METRONIDAZOLE 500 MG PREMIX 100 ML IV SCH ×3 (01:23→18:13)
[2018-03-02] MEDS: VANCOMYCIN HCL 1000 MG/20 ML ORAL PO SCH ×3 (01:25→18:16)
[2018-03-02] MEDS: IPRATROPIUM/ALBUTEROL 0.5-3(2.5)MG/3ML NEB HHN SCH ×6 (01:26→20:54)
[2018-03-02] MEDS: INSULIN LISPRO 100 UNITS/ML SUBCUT SCH ×4 (01:48→18:17)
[2018-03-02] MEDS: DILTIAZEM HCL 30MG TABLET PO SCH ×3 (06:00→21:59)
[2018-03-02] MEDS: BLOOD SUGAR DIAGNOSTIC STRIP TEST SCH ×4 (06:11→18:43)
[2018-03-02] MEDS: MORPHINE SULFATE 4 MG/ML CPJ (NOT FOR IM USE) IV PRN (06:59)
[2018-03-02] MEDS: FAMOTIDINE 20MG/2ML VIAL IV SCH (09:12)
[2018-03-02] MEDS: LACTOBACILLUS GG CAPSULE PO SCH (09:12)
[2018-03-02] MEDS: MIDODRINE HCL 5MG TABLET PO SCH ×3 (09:13→18:13)
[2018-03-02] MEDS: NYSTATIN POWDER 15GM TOP SCH ×2 (09:29→22:00)
[2018-03-02] MEDS: INSULIN GLARGINE UD 100 UNITS/ML SYR SUBCUT SCH (09:30)
[2018-03-02 10:24] LABS: BASOPHILS % 1.2 % (0.0-2.0); EOSINOPHILS % 0.9 % (0.0-5.0); HEMOGLOBIN. 8.9 g/dL (14.0-18.0); LYMPHOCYTES % 8.6 % (20.0-50.0); MEAN CORPUSCULAR HEMOGLOBIN 27.7 pg (28.0-32.0); MEAN CORPUSCULAR VOLUME 87.2 fL (80.0-94.0); MEAN PLATELET VOLUME 8.2 fl (7.4-10.4); MONOCYTES % 6.3 % (2.0-8.0); PLATELET 216 x1000/uL (130-400); RED BLOOD CELL COUNT 3.21 mill/uL (4.7-6.1); RED CELL DISTRIBUTION WIDTH 18.4 % (11.6-14.6)
[2018-03-03] VITALS (15 sets, daily range): BP systolic 82–141; BP diastolic 53–116
[2018-03-03] MEDS: IPRATROPIUM/ALBUTEROL 0.5-3(2.5)MG/3ML NEB HHN SCH ×6 (00:46→21:06)
[2018-03-03] MEDS: INSULIN LISPRO 100 UNITS/ML SUBCUT SCH ×4 (02:13→18:00)
[2018-03-03] MEDS: DILTIAZEM HCL 30MG TABLET PO SCH ×3 (05:31→21:29)
[2018-03-03] MEDS: LACTOBACILLUS GG CAPSULE PO SCH (08:50)
[2018-03-03] MEDS: NYSTATIN POWDER 15GM TOP SCH (08:50)
[2018-03-03] MEDS: FAMOTIDINE 20MG/2ML VIAL IV SCH (08:50)
[2018-03-03] MEDS: INSULIN GLARGINE UD 100 UNITS/ML SYR SUBCUT SCH (10:50)
[2018-03-03] MEDS ORDERED: MORPHINE SULFATE 4 MG/ML CPJ (NOT FOR IM USE) IV PRN (14:00)
[2018-03-03 21:32] LABS: BG BASE EXCESS 2.5 mmol/L (-2.0-2.0); BG CARBOXYHEMOGLOBIN 0.7 % (0.5-1.5); BG DEOXYHEMOGLOBIN 1.1 % (0.0-5.0); BG FRACTION INSPIRED OXYGEN 35; BG HCO3 ACT 26.7 mmol/L (22.0-26.0); BG METHEMOGLOBIN 0.3 % (0.0-1.5); BG OXYGEN SATURATION 98.9 % (92.0-98.5); BG OXYHEMOGLOBIN 97.9 % (94.0-97.0); BG PCO2 39.7 mmHg (35.0-45.0); BG PEEP (cmH2O) 0 cmH2O; BG PH 7.446 (7.350-7.450); BG PIP 10 cmH2O; BG PO2 139.1 mmHg (75.0-100.0); BG PRESSURE SUPPORT 8; BG SAMPLE SITE RIGHT RADIAL; BG TIDAL VOLUME(mL) 344 mL; BG TOTAL HEMOGLOBIN 10.9 g/dL (12.0-18.0); BG VENT MODE VENT - CPAP
== END 2018-03-03 23:04 | DRG 5 ==
LOC: ER 11:41 → CANRESERV 12:13 → ENRESERV 12:13 → CVICU 13:07 → EDBEDREQ 13:09 → EDBEDREQSVC 13:09 → ENRESERV 13:21 → 5EST 02-21 15:50 → CVICU 02-21 21:15 → 5EST 03-01 23:45
PROVIDERS: ADMIT Internal Medicine Geriatric Medicine; ATTEND Internal Medicine Geriatric Medicine
PROC: 5A1955Z Respiratory Ventilation, Greater than 96 Consecutive Hours (ICD-10-PCS; principal; 2018-02-02)
PROC: B54MZZA Ultrasonography of Right Upper Extremity Veins, Guidance (ICD-10-PCS; 2018-02-02)
PROC: 05HY33Z Insertion of Infusion Device into Upper Vein, Percutaneous Approach (ICD-10-PCS; 2018-02-02)
PROC: 5A1D70Z Performance of Urinary Filtration, Intermittent, Less than 6 Hours Per Day (ICD-10-PCS; 2018-02-02)
PROC: 5A1D70Z Performance of Urinary Filtration, Intermittent, Less than 6 Hours Per Day (ICD-10-PCS; 2018-02-03)
PROC: 0W9G3ZX Drainage of Peritoneal Cavity, Percutaneous Approach, Diagnostic (ICD-10-PCS; 2018-02-07)
PROC: 5A1D70Z Performance of Urinary Filtration, Intermittent, Less than 6 Hours Per Day (ICD-10-PCS; 2018-02-07)
PROC: 5A1D70Z Performance of Urinary Filtration, Intermittent, Less than 6 Hours Per Day (ICD-10-PCS; 2018-02-08)
PROC: 5A1D70Z Performance of Urinary Filtration, Intermittent, Less than 6 Hours Per Day (ICD-10-PCS; 2018-02-10)
PROC: 5A1D70Z Performance of Urinary Filtration, Intermittent, Less than 6 Hours Per Day (ICD-10-PCS; 2018-02-11)
PROC: 5A1D70Z Performance of Urinary Filtration, Intermittent, Less than 6 Hours Per Day (ICD-10-PCS; 2018-02-13)
PROC: 5A1D70Z Performance of Urinary Filtration, Intermittent, Less than 6 Hours Per Day (ICD-10-PCS; 2018-02-15)
PROC: 5A1D70Z Performance of Urinary Filtration, Intermittent, Less than 6 Hours Per Day (ICD-10-PCS; 2018-02-17)
PROC: 0W9G3ZZ Drainage of Peritoneal Cavity, Percutaneous Approach (ICD-10-PCS; 2018-02-18)
PROC: 5A1D70Z Performance of Urinary Filtration, Intermittent, Less than 6 Hours Per Day (ICD-10-PCS; 2018-02-19)
PROC: 0B110F4 Bypass Trachea to Cutaneous with Tracheostomy Device, Open Approach (ICD-10-PCS; 2018-02-20)
PROC: 5A1D70Z Performance of Urinary Filtration, Intermittent, Less than 6 Hours Per Day (ICD-10-PCS; 2018-02-21)
PROC: 30233N1 Transfusion of Nonautologous Red Blood Cells into Peripheral Vein, Percutaneous Approach (ICD-10-PCS; 2018-02-23)
PROC: 5A1D70Z Performance of Urinary Filtration, Intermittent, Less than 6 Hours Per Day (ICD-10-PCS; 2018-02-24)
PROC: 5A1D70Z Performance of Urinary Filtration, Intermittent, Less than 6 Hours Per Day (ICD-10-PCS; 2018-02-26)
PROC: 0W9G3ZZ Drainage of Peritoneal Cavity, Percutaneous Approach (ICD-10-PCS; 2018-02-28)
PROC: 5A1D70Z Performance of Urinary Filtration, Intermittent, Less than 6 Hours Per Day (ICD-10-PCS; 2018-02-28)
PROC: 5A1D70Z Performance of Urinary Filtration, Intermittent, Less than 6 Hours Per Day (ICD-10-PCS; 2018-03-02)
DX: A41.59 Other Gram-negative sepsis (principal); R65.21 Severe sepsis with septic shock; E43 Unspecified severe protein-calorie malnutrition; G92 Toxic encephalopathy; J15.0 Pneumonia due to Klebsiella pneumoniae; J96.22 Acute and chronic respiratory failure with hypercapnia; I50.33 Acute on chronic diastolic (congestive) heart failure; I47.2 Ventricular tachycardia; A04.72 Enterocolitis due to Clostridium difficile, not specified as recurrent; N18.6 End stage renal disease; L89.152 Pressure ulcer of sacral region, stage 2; I13.2 Hypertensive heart and chronic kidney disease with heart failure and with stage 5 chronic kidney disease, or end stage renal disease; G82.20 Paraplegia, unspecified; E11.22 Type 2 diabetes mellitus with diabetic chronic kidney disease; Z99.2 Dependence on renal dialysis; D63.8 Anemia in other chronic diseases classified elsewhere; D69.6 Thrombocytopenia, unspecified; E87.6 Hypokalemia; B96.4 Proteus (mirabilis) (morganii) as the cause of diseases classified elsewhere; E11.51 Type 2 diabetes mellitus with diabetic peripheral angiopathy without gangrene; E78.00 Pure hypercholesterolemia, unspecified; F10.10 Alcohol abuse, uncomplicated; F12.90 Cannabis use, unspecified, uncomplicated; G40.909 Epilepsy, unspecified, not intractable, without status epilepticus; G47.33 Obstructive sleep apnea (adult) (pediatric); H10.89 Other conjunctivitis; I27.20 Pulmonary hypertension, unspecified; I47.1 Supraventricular tachycardia; J44.0 Chronic obstructive pulmonary disease with (acute) lower respiratory infection; J98.11 Atelectasis; K21.9 Gastro-esophageal reflux disease without esophagitis; K56.7 Ileus, unspecified; K72.10 Chronic hepatic failure without coma; E11.42 Type 2 diabetes mellitus with diabetic polyneuropathy; K73.2 Chronic active hepatitis, not elsewhere classified; N13.9 Obstructive and reflux uropathy, unspecified; K70.31 Alcoholic cirrhosis of liver with ascites; M10.9 Gout, unspecified; N30.90 Cystitis, unspecified without hematuria; N40.0 Benign prostatic hyperplasia without lower urinary tract symptoms; R62.7 Adult failure to thrive; Z78.1 Physical restraint status; Z79.84 Long term (current) use of oral hypoglycemic drugs; Z79.899 Other long term (current) drug therapy; Z86.73 Personal history of transient ischemic attack (TIA), and cerebral infarction without residual deficits; Z87.891 Personal history of nicotine dependence; Z99.11 Dependence on respirator [ventilator] status; Z99.3 Dependence on wheelchair; Z68.30 Body mass index [BMI] 30.0-30.9, adult; I95.9 Hypotension, unspecified; K92.2 Gastrointestinal hemorrhage, unspecified
CPT/HCPCS: 31500; 36415; 36569; 36600; 49083; 71045; 74018; 74176; 76700; 76705; 76937; 80048; 80053; 80150; 80202; 81003; 82140; 82375; 82533; 82553; 82805; 82962; 83605; 83615; 83735; 83880; 84100; 84145; 84157; 84478; 84484; 85014; 85018; 85025; 85027; 85610; 85730; 86850; 86900; 86920; 87015; 87040; 87045; 87070; 87077; 87086; 87106; 87186; 87205; 87427; 87449; 87493; 88108; 88312; 89050; 93005; 93970; 94002; 94003; 94640; 96365; 96366; 96368; 96375; 99291; A6261; C1725; C9113; J0278; J0692; J0696; J0885; J1200; J1265; J1644; J1650; J1815; J1940; J1956; J2060; J2185; J2248; J2270; J2370; J2405; J2543; J2704; J3370; J3475; J3480; J3490; J7030; J7040; J7050; J7060; J7608; J7620; P9016; P9047; A4315